=== PATIENT | female | born 1995 | race Two or more races ===

== ENCOUNTER 2022-08-24 12:16 | Emergency (ER) | payer BC, SELFPAY ==
[2022-08-24 12:49] VITALS: BP 116/76; PULSE 112; RESP 18; TEMP 38.4; O2SAT 97; BMI 31.0
--- NOTE | 2022-08-24 13:35 | ED_ITS ---
HPI - General Adult General Chief complaint: Sore Throat Stated complaint: Swollen tonsels, difficulty breathing Time Seen by Provider: 08/24/22 12:26 History of Present Illness HPI narrative: This 26-year-old female comes in reporting severe sore throat for the past couple days. She does not report any cough or nasal congestion. She does have some pain in her left ear also. There is no report of shortness of breath. She arrives with a temperature of 101.2? F. She states that she has had fevers at 104? and despite taking Tylenol and ibuprofen she has had persistent fevers. Related Data Previous Rx's Medication Instructions Recorded amoxicillin 875 mg-potassium 1 tab PO BID #20 tabs 08/24/22 clavulanate 125 mg tablet ketorolac 10 mg tablet 10 mg PO TID 5 days #15 tabs 08/24/22 Allergies Allergy/AdvReac Type Severity Reaction Status Date / Time No Known Drug Allergies Allergy Verified 08/24/22 12:55 Review of Systems 2 Status of ROS: Reports: 10 or more systems reviewed and unremarkable except as noted in History and below Narrative: Constitutional: No weight gain or loss. Eyes: No discharge. No vision changes. HENT: No congestion. Sore throat and some left ear pain. Cardiovascular: No chest pain, no palpitations. Respiratory: No shortness of breath, no wheezes, no cough. Gastrointestinal: No abdominal pain, no vomiting, no diarrhea. Genitourinary: No dysuria, no hematuria. Musculoskeletal: Normal range of motion. Skin: No rashes, no pruritis. Neurological: No dizziness, weakness, sensory change, speech change. Endo/Heme/Allergies: No bruising or bleeding. No polydipsia. Pysch: no suicidality, no anxiety, no insomnia. All other systems reviewed and are negative. Exam Narrative: Exam Narrative: Constitutional: Well-developed, well-nourished, no acute distress. HEENT: Normocephalic, atraumatic. Oropharynx shows bilateral tonsillar hypertrophy with exudate. There is no trismus. Tympanic membranes appear norm al bilaterally. Neck: Normal range of motion. Nontender. Supple. Heart: Regular. No murmurs. Normal rate. Intact distal pulses. Lungs: Clear to auscultation. No chest discomfort. No wheezes, rhonchi, or rales. Abdomen: Normal bowel sounds. Nontender. No rebound tenderness. Genitalia: Deferred. Back: No midline tenderness. Normal range of motion. Extremities: Normal range of motion. No injury. Skin: Intact. No rash. Warm. No erythema or pallor. Neurologic: No altered sensation. No weakness. Alert and oriented. Psychiatric: No suicidality. No anxiety or depression. No insomnia. Nursing notes and vitals signs are reviewed. Const: Vital Signs, click to edit/add: Vital Signs - 24 hr 08/24/22 12:49 Temperature 101.2 F H Pulse Rate [Right Pulse Oximeter] 112 H Respiratory Rate 18 Blood Pressure [Ri ght Upper Arm] 116/76 Pulse Oximetry 97 Oxygen Delivery Me thod Room Air Course Vital Signs Vital signs: Initial Vital Signs Temperature 101.2 F H 08/24/22 12:49 Temperature Source Temporal Artery Scan 08/24/22 12:49 Pulse Rate 112 H 08/24/22 12:49 Respiratory Rate 18 08/24/22 12:49 Blood Pressure 116/76 08/24/22 12:49 Blood Pressure Mean 89 08/24/22 12:49 Pulse Oximetry 97 08/24/22 12:49 Oxygen Delivery Method 08/24/22 12:49 Vital Signs Temperature 101.2 F H 08/24/22 12:49 Pulse Rate 112 H 08/24/22 12:49 Respiratory Rate 18 08/24/22 12:49 Blood Pressure 116/76 08/24/22 12:49 Pulse Oximetry 97 08/24/22 12:49 Oxygen Delivery Method 08/24/22 12:49 Temperature 101.2 F H 08/24/22 12:49 Pulse Rate 112 H 08/24/22 12:49 Respiratory Rate 18 08/24/22 12:49 Blood Pressure 116/76 08/24/22 12:49 Pulse Oximetry 97 08/24/22 12:49 Oxygen Delivery Method 08/24/22 12:49 Medical Decision Making MDM Narrative Medical decision making narrative: This patient comes in with symptoms typical of tonsillitis. The appearance of her throat and the persistent fever indicates need for antibiotic treatment. A strep test would not be helpful in this regard as even if it is negative she still should receive this treatment. I did discuss the possibility of mono but she is just 2 days into the symptoms and the testing will not be accurate. She received prescription for Augmentin and Toradol. I describe signs and symptoms that would indicate a need for return and re-evaluation. Discharge Plan Discharge Clinical Impression: Acute tonsillitis Patient Disposition: Home, Self-Care Condition: Stable Additional Instructions: Take medication as prescribed. Use [id number] medicines also as needed and directed. Follow up with MD or return if worsening. Prescriptions: New ketorolac 10 mg tablet 10 mg PO TID 5 Days Qty: 15 0RF amoxicillin-pot clavulanate 875-125 mg tablet 1 tab PO BID Qty: 20 0RF Follow Up/Referrals: Provider,Not a Local [Primary Care Provider] - Stand Alone Forms: [employer] Info Instructions
[2022-08-24 13:41] VITALS: BP 138/80; PULSE 117; TEMP 38.7; O2SAT 99
== END 2022-08-24 13:50 | disposition home or self-care (01) ==
PROVIDERS: Emergency Provider Emergency Medicine Emergency Medical Services
DX: J03.90 Acute tonsillitis, unspecified (principal)
CPT/HCPCS: 99283; 99285

== ENCOUNTER 2023-05-15 22:55 | Emergency (ER) | payer BC, SELFPAY ==
[2023-05-15 23:21] VITALS: BP 118/73; PULSE 87; RESP 18; TEMP 36.4; O2SAT 99; BMI 31.6
--- NOTE | 2023-05-16 00:23 | ED.BACK ---
HPI - Back Pain/Injury General Time Seen by Provider: 00:24 Date Seen: 05/24/23 Chief Complaint: Back Injury/Pain Stated Complaint: Slipped disc, inflammation in back Time Seen by Provider: 05/16/23 00:03 Source: patient, family, RN notes reviewed and old records reviewed Mode of arrival: ambulatory Limitations: no limitations History of Present Illness HPI Narrative: 27-year-old female who presents today with left-sided back pain. This started about 4 days ago, she was lifting something and felt a pop in her back, has had pain since. Pain is worse with movement and radiates to the low back and across to the right little bit but not into the buttock or leg. No bowel or bladder incontinence. Has been taking ibuprofen 800 mg every 4-6 hours for this. Saw the chiropractor today who told her she should get a ?steroid shot.Denies possibility of . Related Data Allergies Allergy/AdvReac Type Severity Reaction Status Date / Time No Known Drug Allergies Allergy Verified 05/15/23 23:25 Review of Systems Status of ROS: Reports: 10 or more systems reviewed and unremarkable except as noted in History and below PFSH PFSH Social History Smoking Status: Never smoker How often do you have a drink containing alcohol: never How often do you have six or more drinks on one occasion: Never AUDIT-C Alcohol total score: 0 Non-prescribed substance use: denies use Exam Narrative: Exam Narrative: General: well nourished , NAD Head: Atraumatic and normocephalic ENT: External ears and external nose are normal Eyes: Conjunctiva clear, pupils are equal reactive, external ocular motions are intact Neck: Full spontaneous range of motion of the neck Lungs: No respiratory distress Musculoskeletal: Tenderness just left of midline of the low lumbar spine. Straight leg negative, strength and sensation of the left leg intact. Limited flexion and extension. Neurologic: No gross focal neurologic deficits Skin: No rashes Psych: Mood and affect are appropriate Const: Vital Signs, click to edit/add: Vital Signs - 24 hr 05/15/23 23:21 Temperature 97.5 F L Pulse Rate [Pulse Oximeter] 87 Respiratory Rate 18 Blood Pressure [Ri ght Upper Arm] 118/73 Pulse Oximetry 99 Oxygen Delivery Me thod Room Air Course Course ED Course: Patient seen examined, prior records reviewed. Patient presents today with low back pain that occurred after lifting. Predominantly on the left side with lip some left-sided tenderness but no neurologic symptoms, strength and sensation of the lower extremities intact, no incontinence. Patient will be started on prednisone burst, oxycodone, and Flexeril as needed. We discussed decreasing use of ibuprofen as she has been over taking this. Discussed follow-up in the orthopedic clinic. Vital Signs Vital signs: Initial Vital Signs Temperature 97.5 F L 05/15/23 23:21 Temperature Source Temporal Artery Scan 05/15/23 23:21 Pulse Rate 87 05/15/23 23:21 Pulse Rhythm Regular 05/15/23 23:21 Respiratory Rate 18 05/15/23 23:21 Blood Pressure 118/73 05/15/23 23:21 Blood Pressure Mean 88 05/15/23 23:21 Pulse Oximetry 99 05/15/23 23:21 Oxygen Delivery Method Room Air 05/15/23 23:21 Vital Signs Temperature 97.5 F L 05/15/23 23:21 Pulse Rate 87 05/15/23 23:21 Respiratory Rate 18 05/15/23 23:21 Blood Pressure 118/73 05/15/23 23:21 Pulse Oximetry 99 05/15/23 23:21 Oxygen Delivery Method Room Air 05/15/23 23:21 Temperature 97.5 F L 05/15/23 23:21 Pulse Rate 87 05/15/23 23:21 Respiratory Rate 18 05/15/23 23:21 Blood Pressure 118/73 05/15/23 23:21 Pulse Oximetry 99 05/15/23 23:21 Oxygen Delivery Method Room Air 05/15/23 23:21 Discharge Plan Discharge Clinical Impression: Strain of lumbar region Patient Disposition: Home, Self-Care Condition: Stable Instructions: Low Back Strain (ED), Back Pain (ED), Lower Back Exercises (ED) Additional Instructions: Start prednisone taper as prescribed Do not take ibuprofen 800 mg tablets anymore than 3 times a day. You may take Tylenol between doses of ibuprofen. Oxycodone for severe pain and Flexeril, a muscle relaxant, as needed. Ice or heat for comfort Follow-up with the orthopedic clinic in 1 week, Follow Up/Referrals: Provider,Not a Local [Primary Care Provider] - Stand Alone Forms: Medical Referral [employer] Info Instructions
[2023-05-16 00:39] VITALS: BP 125/70; PULSE 79; RESP 18; TEMP 36.8; O2SAT 99
[2023-05-16 00:43] VITALS: BP 125/70; PULSE 79; RESP 18; TEMP 36.8
== END 2023-05-16 00:43 | disposition home or self-care (01) ==
LOC: ED 05-16 00:29
PROVIDERS: Emergency Provider Family Medicine
DX: S39.012A Strain of muscle, fascia and tendon of lower back, initial encounter (principal); X50.9XXA Other and unspecified overexertion or strenuous movements or postures, initial encounter
CPT/HCPCS: 99283; 99284

== ENCOUNTER 2023-08-18 14:37 | Outpatient (CLI) | payer BC, SELFPAY ==
--- NOTE | 2023-08-18 14:30 | CRLHL7_ITS ---
For Patients: As a result of the Century Cures Act, medical imaging exams and procedure reports are released immediately into your electronic medical record. You may view this report before your referring provider. If you have questions, please contact your health care provider. INDICATION: Low back pain. TECHNIQUE: Noncontrast sagittal and axial T1, T2, and sagittal STIR sequences are provided. No comparisons. FINDINGS: The overall stature, alignment and intrinsic marrow signal of the lumbar spine is within normal limits. Conus is normal. L4-5: Small posterior central disc protrusion extends 4 millimeters beyond the posterior vertebral body margin resulting in no significant central canal or foraminal narrowing. Remainder of the lumbar spine is unremarkable, specifically no evidence of suspicious central canal or foraminal narrowing. Incidental cysts within the right adnexa likely physiologic in nature. IMPRESSION: 1. Minor discogenic degenerative change at L4-5 resulting in no significant central canal or foraminal narrowing. 2. Otherwise, unremarkable MRI of the lumbar spine. Dictated by Norris Lorenzo MD @ 08/18/2023 4:24:32 PM (Electronically Signed)
== END 2023-08-18 14:38 | disposition home or self-care (01) ==
PROVIDERS: Visit Provider Family Medicine
DX: M54.50 Low back pain, unspecified (principal); M51.36 Other intervertebral disc degeneration, lumbar region
CPT/HCPCS: 72148

== ENCOUNTER 2023-11-13 16:03 | Outpatient (CLI) | payer BC, SELFPAY ==
--- NOTE | 2023-11-13 16:00 | US_ITS ---
Patient: RM MURILLO Facility:?[facility] Patient ID:?[id number] Site Patient ID:?[id number]. Site :?1995 Study:?US-OB Pelvis PELVIC TV/TA-11/13/2023 5:12:09 PM Ordering Physician:?JT SANDERS Final Report: INDICATION: Dysmenorrhea, pelvic pain. TECHNIQUE: Transabdominal and transvaginal pelvic ultrasound with grayscale and duplex Doppler images. FINDINGS: Uterus is retroflexed and measures 7.3 x 3.1 x 5.1 cm. Endometrial stripe thickness is 5 mm. Both ovaries contain numerous subcentimeter follicles. No dominant follicle. No adnexal mass. Normal color and spectral Doppler flow to both ovaries. Minimal pelvic free fluid. IMPRESSION: Numerous subcentimeter follicles in both ovaries. This finding can be seen with polycystic ovarian syndrome but is not diagnostic in itself. Otherwise normal. Dictated by Earle Krishnan MD @ 11/14/2023 11:47:03 AM Signed by:?Earle Krishnan MD @11/14/2023 11:47:03 AM (Electronic Signature)
== END 2023-11-13 16:04 | disposition home or self-care (01) ==
LOC: US 16:03
PROVIDERS: Visit Provider Family Medicine
DX: N94.6 Dysmenorrhea, unspecified (principal); N83.01 Follicular cyst of right ovary; N83.02 Follicular cyst of left ovary; R10.2 Pelvic and perineal pain
CPT/HCPCS: 76830; 76856; 93976

== ENCOUNTER 2023-12-05 16:13 | Outpatient (CLI) | payer BC, SELFPAY | END 2023-12-05 16:14 | disposition home or self-care (01) | PROVIDERS: PCP Family Medicine; Visit Provider Registered Nurse | DX: Z13.220 Encounter for screening for lipoid disorders (principal); Z13.1 Encounter for screening for diabetes mellitus; Z13.29 Encounter for screening for other suspected endocrine disorder; Z11.3 Encounter for screening for infections with a predominantly sexual mode of transmission; L68.0 Hirsutism | CPT/HCPCS: 80061; 82947; 83498; 84270; 84402; 84403; 84443; 86592; 86703; 86803; 87340; 87491; 87591 ==

== ENCOUNTER 2024-03-31 18:10 | Emergency (ER) | payer OTHER, SELFPAY ==
[2024-03-31 18:29] VITALS: BP 106/69; PULSE 78; RESP 18; TEMP 36.3; O2SAT 98
--- NOTE | 2024-03-31 18:57 | ED_ITS ---
HPI - General Time Seen by Provider: 18:58 Date Seen: 03/31/24 Chief complaint: Vaginal Bleeding Stated complaint: bleeding, 8 wks preg Time Seen by Provider: 03/31/24 18:56 Source: patient and RN notes reviewed Mode of arrival: ambulatory Limitations: no limitations History of Present Illness HPI Narrative: This 28-year-old female is coming in with spotting and cramping. She states her last menstrual period was probably on 02/09/2024. She had some vermin exterminator spotting earlier. About 20 minutes prior to arrival, had more cramping and more heavier bleeding, more bright red blood. She has had morning sickness, actually threw up this morning for the 1st time. She has had no vaginal intercourse. She has not had any fevers or chills, no abnormal vaginal discharge prior to the blood. She is still having breast tenderness. She believes that she has had maybe 2 or 3 other miscarriages. She has no living children. MD Complaint: vaginal bleeding Hx Last Menstrual Period: 02/09/24 Patient : Yes Related Data Home Medications ?Medication ?Instructions ?Recorded ?Confirmed escitalopram oxalate 10 mg tablet 10 mg PO QDAY 01/26/24 03/15/24 Previous Rx's ?Medication ?Instructions ?Recorded escitalopram oxalate 10 mg tablet 10 mg PO QDAY #30 tabs 01/26/24 (Lexapro) levonorgestrel-ethinyl estradiol 1 tab PO QDAY #84 tabs 01/26/24 0.1 mg-20 mcg tablet (Aviane) metronidazole 500 mg tablet 500 mg PO BID #14 tabs 02/16/24 Allergies Allergy/AdvReac Type Severity Reaction Status Date / Time No Known Drug Allergies Allergy Unverified 03/15/24 08:02 Review of Systems Status of ROS: Reports: 6 or more systems reviewed and unremarkable except as noted in History and below [facility] Medical History Chest pain ?R07.9 - Chest pain, unspecified (ICD-10) Acute pelvic inflammatory disease ?N73.0 - Acute parametritis and pelvic cellulitis (ICD-10) Miscarriage ?O03.9 - Complete or unspecified spontaneous without complication (ICD-10) No significant past medical history Surgical History H/O plastic surgery ?Z98.890 - Other specified postprocedural states (ICD-10) Social History What is your current living situation?: I presently have a place to live Problems where you live: no known problems In the past 12 months, utilities in danger of being shut off: no In past 12 months, lack of transportation kept you from medical appts, meetings, work, or getting things needed for daily living: no In the past 12 mos, have been you worried that your food would run out before you had money to buy more?: never true In the past 12 mos, the food you bought just didn't last and you didn't have money to buy more?: never true Smoking Status: Never smoker Do you use any of these nicotine containing products: None Second hand tobacco smoke exposure: No How often do you have a drink containing alcohol: never How often do you have six or more drinks on one occasion: Never AUDIT-C Alcohol total score: 0 Non-prescribed substance use: denies use How often does anyone, including family, friends and others, physically hurt you : never How often does anyone, including family, friends and others, insult or talk down to you: never How often does anyone, including family, friends and others, threaten you with harm: never How often does anyone, including family, friends and others, scream or curse at you: never Little interest or pleasure in doing things: not at all Feeling down, depressed, or hopeless: not at all service: No Exam Const: Vital Signs, click to edit/add: Vital Signs - 24 hr 03/31/24 18:29 Temperature 97.3 F L Pulse Rate [Pulse Oximeter] 78 Respiratory Rate 18 Blood Pressure [Ri ght Upper Arm] 106/69 Pulse Oximetry 98 Oxygen Delivery Me thod Room Air Patient is a very pleasant 28-year-old female, alert, interactive, no apparent distress. Ambulatory into the ED of her own accord. Sclera clear, face atraumatic. Neck supple. Lungs are clear, good air entry, no wheezing crackles. CV regular rate and rhythm, no murmur, normal S1-S2, no S3-S4. Abdomen is soft, nontender, nondistended, no rebound or guarding. Pelvic exam deferred at this point. Documenting provider has reviewed patient's vital signs: yes Course Course ED Course: Patient is not having significant pain, doubt ectopic but imaging will be done. This certainly could be threatened miscarriage, miscarriage or subchorionic hemorrhage. We will obtain imaging and appropriate labs. Will get CBC, quantitative hCG and her blood type. Reevaluation(s) Time of Reevaluation #1: 21:04 Reevaluation #1: Reviewed with patient her ultrasound which shows an intrauterine , small subchorionic hemorrhage. Her hCG levels are most certainly reassuring. She is O-positive. We will discharge to home for further outpatient follow-up. Vital Signs Vital signs: Initial Vital Signs Temperature 97.3 F L 03/31/24 18:29 Temperature Source Temporal Artery Scan 03/31/24 18:29 Pulse Rate 78 03/31/24 18:29 Respiratory Rate 18 03/31/24 18:29 Blood Pressure 106/69 03/31/24 18:29 Blood Pressure Mean 81 03/31/24 18:29 Pulse Oximetry 98 03/31/24 18:29 Oxygen Delivery Method Room Air 03/31/24 18:29 Vital Signs Temperature 97.3 F L 03/31/24 18:29 Pulse Rate 78 03/31/24 18:29 Respiratory Rate 18 03/31/24 18:29 Blood Pressure 106/69 03/31/24 18:29 Pulse Oximetry 98 03/31/24 18:29 Oxygen Delivery Method Room Air 03/31/24 18:29 Temperature 97.3 F L 03/31/24 18:29 Pulse Rate 78 03/31/24 18:29 Respiratory Rate 18 03/31/24 18:29 Blood Pressure 106/69 03/31/24 18:29 Pulse Oximetry 98 03/31/24 18:29 Oxygen Delivery Method Room Air 03/31/24 18:29 MDM - OB/Uterine Contractions Lab Data Attestation: I reviewed the patient's lab results. Labs: Lab Results 03/31/24 Range/Units 19:21 WBC 11.95 H (4.50-11.00) K/uL RBC 3.97 L (4.00-5.20) m/uL Hgb 11.7 L (12.0-16.0) gm/dL Hct 35.8 (33.0-51.0) % MCV 90 (80-100) fL MCH 30 (26-34) pg MCHC 33 (32-36) gm/dL RDW Coeff of Tamia 13.3 (11.5-15.5) % Plt Count 283 (140-440) K/uL Neut % (Auto) 69.0 (42.0-72.0) % Lymph % (Auto) 23.5 (20-44) % [place] % (Auto) 5.3 (0.0-11.0) % Eos % (Auto) 1.7 (0.0-7.0) % Baso % (Auto) 0.3 (0.0-3.0) % Neut # (Auto) 8.20 H (1.7-7.0) K/uL Lymph # (Auto) 2.80 (0.90-2.90) K/uL [place] # (Auto) 0.60 (0.00-0.90) K/UL Eos # (Auto) 0.20 (0.00-0.50) K/uL Baso # (Auto) 0.00 (0.00-0.30) K/uL Abs Immat Gran (auto) 0.00 (0.00-0.30) K/uL Imm/Tot Granulo (auto) 0.2 % HCG, Quant 87335.00 mIU/mL Blood Type O Positive Imaging Data US OB: Attestation: I have reviewed the pertinent imaging results. Radiologist's impression: Patient: RM MURILLO Facility:?[facility] Patient ID:?[id number] Site Patient ID:?[id number]. Site :?1995 Study:?US-OB Pelvis -03/31/2024 8:03:12 PM Ordering Physician:?Michelle Baker Final Report: INDICATION: Abnormal vaginal bleeding in early . TECHNIQUE: Transabdominal and transvaginal limited obstetric ultrasound examination of the pelvis was performed. Grayscale and color Doppler images were obtained. COMPARISON: None. FINDINGS: Uterus: Normal in echotexture. No suspicious masses. Endometrium: Delete no significant endometrial free fluid. Intrauterine gestation: Yes. Mean sac diameter of 1.6 cm, compatible with an estimated gestational age of 6 weeks and 3 days. cardiac activity: Yes. One hundred seven bpm. [place]-rump length: 2 mm. Estimated gestational age of 5 weeks and 5 days. Yolk sac: Normal. Perigestational hemorrhage: There is a small amount of subchorionic hypoechogenicity. Estimated sonographic due date: 11/26/2024. Right Ovary: Measures 2.9 x 1.7 x 1.6 cm. No suspicious masses. Normal arterial and venous flow on color Doppler imaging. Left ovary: Measures 3.5 x 2.7 x 2.7 cm. Left corpus luteal cyst. Normal arterial and venous flow on color Doppler imaging. Cul-de-sac: No free fluid. IMPRESSION: 1. Small viable intrauterine with estimated gestational age of 5 weeks and 5 days by crown-rump length and estimated due date of 11/26/2024. 2. Trace subchorionic hematoma. Dictated by Stuart Green MD @ 03/31/2024 8:51:51 PM (Electronic Signature) Discharge Plan Discharge Clinical Impression: First trimester bleeding, Subchorionic hemorrhage in first trimester Patient Disposition: Home, Self-Care Condition: Stable Instructions: Subchorionic Hemorrhage (ED) Additional Instructions: Please contact your clinic where you plan to do your OB care and get a follow-up appointment. Recommend pelvic rest, no intercourse until further advised by your detector car operator or Dr. Following your . This should resolve and is not likely to harm the . If you do note increased bleeding, are bleeding through a maxi pad an hour for over 2 hours, feel symptomatic from bleeding, do need to be re-evaluated. The ultrasound is reassuring for an intrauterine , the hCG hormone level is high and indicative of a healthy at this point. Activity Level: No strenuous activity Prescriptions: No Action escitalopram oxalate 10 mg tablet 10 mg PO QDAY escitalopram oxalate [Lexapro] 10 mg tablet 10 mg PO QDAY Qty: 30 0RF levonorgestrel-ethinyl estrad [Aviane] 0.1-20 mg-mcg tablet 1 tab PO QDAY Qty: 84 4RF metronidazole 500 mg tablet 500 mg PO BID Qty: 14 0RF Follow Up/Referrals: Celso Ibanez MD [Primary Care Provider] - Stand Alone Forms: [employer] Info Instructions
--- NOTE | 2024-03-31 19:03 | CRLHL7_ITS ---
For Patients: As a result of the Century Cures Act, medical imaging exams and procedure reports are released immediately into your electronic medical record. You may view this report before your referring provider. If you have questions, please contact your health care provider. INDICATION: Abnormal vaginal bleeding in early . TECHNIQUE: Transabdominal and transvaginal limited obstetric ultrasound examination of the pelvis was performed. Grayscale and color Doppler images were obtained. COMPARISON: None. FINDINGS: Uterus: Normal in echotexture. No suspicious masses. Endometrium: Delete no significant endometrial free fluid. Intrauterine gestation: Yes. Mean sac diameter of 1.6 cm, compatible with an estimated gestational age of 6 weeks and 3 days. cardiac activity: Yes. One hundred seven bpm. [place]-rump length: 2 mm. Estimated gestational age of 5 weeks and 5 days. Yolk sac: Normal. Perigestational hemorrhage: There is a small amount of subchorionic hypoechogenicity. Estimated sonographic due date: 11/26/2024. Right Ovary: Measures 2.9 x 1.7 x 1.6 cm. No suspicious masses. Normal arterial and venous flow on color Doppler imaging. Left ovary: Measures 3.5 x 2.7 x 2.7 cm. Left corpus luteal cyst. Normal arterial and venous flow on color Doppler imaging. Cul-de-sac: No free fluid. IMPRESSION: 1. Small viable intrauterine with estimated gestational age of 5 weeks and 5 days by crown-rump length and estimated due date of 11/26/2024. 2. Trace subchorionic hematoma. Dictated by Stuart Green MD @ 03/31/2024 8:51:51 PM (Electronically Signed)
[2024-03-31 19:29] LABS: Basophils Percent Auto 0.3 % (0.0-3.0); Eosinophils Percent Auto 1.7 % (0.0-7.0); Hematocrit 35.8 % (33.0-51.0); Hemoglobin* 11.7 gm/dL (12.0-16.0); Immature Granulocytes Pct Auto 0.2 %; Lymphocytes Percent Auto 23.5 % (20-44); Mean Corpuscular HGB Conc 33 gm/dL (32-36); Mean Corpuscular Hemoglobin 30 pg (26-34); Mean Corpuscular Volume 90 fL (80-100); Monocytes Percent Auto 5.3 % (0.0-11.0); Platelet Count* 283 K/uL (140-440); RDW Coefficient of Variation % 13.3 % (11.5-15.5); Red Blood Count 3.97 m/uL (4.00-5.20); White Blood Count* 11.95 K/uL (4.50-11.00)
[2024-03-31 19:44] LABS: Slide Review Reflex No
== END 2024-03-31 21:12 | disposition home or self-care (01) ==
PROVIDERS: Emergency Provider Family Medicine; PCP Family Medicine
DX: O46.8X1 Other antepartum hemorrhage, first trimester (principal); Z3A.08 8 weeks gestation of pregnancy
CPT/HCPCS: 36415; 76817; 84702; 85025; 86900; 86901; 99283; 99284

== ENCOUNTER 2024-04-19 12:31 | Day surgery (SDC) | payer OTHER, SELFPAY ==
[2024-04-19 12:35] VITALS: BP 108/73; PULSE 106; RESP 16; TEMP 37.7; O2SAT 98; BMI 28.3
--- NOTE | 2024-04-19 12:56 | ED_ITS ---
HPI - General Adult General Date Seen: 04/19/24 Chief complaint: Abdominal Pain Stated complaint: Abdominal pain Time Seen by Provider: 04/19/24 12:41 History of Present Illness HPI narrative: 28-year-old female with a history previous miscarriages, anxiety, presents to the ER today with vaginal bleeding, passing clots, fevers, as well as pelvic cramping. On 03/31 she presented to the ER today with vaginal spotting and cramping. According to those notes LMP was 02/09/2024. On that day white count was 11.9, hemoglobin 11.7, platelet count 283. Quant was [id number]. Blood type O positive. Pelvic ultrasound showed a viable IUP 5 weeks 5 days and a trace subchorionic hematoma. Patient does not have any obstetric care here at [facility]. I checked in the [facility] medical record to see if she is getting OB care there. I can see in the [facility] medical record that she was seen at [facility] 2 days ago 04/17/24. According to that ER note she had had abdominal pain beginning March 31 and has 2 previous miscarriages. No mention of the medically induced according to that note. WBC 10.1, hemoglobin 11.5, platelet count 313. Sodium 139, potassium 3.8, chloride 103, bicarb 22, BUN 12, creatinine 0.7. hCG was 1700. Ultrasound performed. Recommended outpatient follow-up with OB. She was seen at [facility] in [place] on April 05 and treated with of medical induced (probably him misoprostol and mefipristone). She says she had a follow-up visit at [facility] last Monday, 1 week ago. She was having ongoing pelvic cramping and bleeding. She apparently had a follow-up blood counts that were normal. Follow-up ultrasound showed probably retained products of conception (I do not have a copy of the ultrasound from [facility], but patient says there was still ?debris? in her uterus) the. [facility] recommended that they proceed with a D&C last week, the but the patient declined. She was told to expect heavy cramping and bleeding this week and return to the ER if she has uncontrolled heavy bleeding, fever, or any other problems. ED for the past several days she has had much increased pelvic pain, vaginal bleeding with clots. She says she is changing a tampon about every 1/2 hour. She is feeling a little bit weak and lightheaded. She has had chills for the past 4 nights but no objective fevers. Blood is mostly red and dark red. No brown her purulent bleeding. No urinary symptoms. No cough. Related Data Home Medications ?Medication ?Instructions ?Recorded ?Confirmed escitalopram oxalate 10 mg tablet 10 mg PO QDAY 01/26/24 04/19/24 Previous Rx's ?Medication ?Instructions ?Recorded escitalopram oxalate 10 mg tablet 10 mg PO QDAY #30 tabs 01/26/24 (Lexapro) Allergies Allergy/AdvReac Type Severity Reaction Status Date / Time No Known Drug Allergies Allergy Verified 04/19/24 12:43 PFSH PFS Medical History Chest pain ?R07.9 - Chest pain, unspecified (ICD-10) Acute pelvic inflammatory disease ?N73.0 - Acute parametritis and pelvic cellulitis (ICD-10) Miscarriage ?O03.9 - Complete or unspecified spontaneous without complication (ICD-10) No significant past medical history Surgical History H/O plastic surgery ?Z98.890 - Other specified postprocedural states (ICD-10) Social History What is your current living situation?: I presently have a place to live Problems where you live: no known problems In the past 12 months, utilities in danger of being shut off: no In past 12 months, lack of transportation kept you from medical appts, meetings, work, or getting things needed for daily living: no In the past 12 mos, have been you worried that your food would run out before you had money to buy more?: never true In the past 12 mos, the food you bought just didn't last and you didn't have money to buy more?: never true Smoking Status: Never smoker Do you use any of these nicotine containing products: None Second hand tobacco smoke exposure: No How often do you have a drink containing alcohol: never How often do you have six or more drinks on one occasion: Never AUDIT-C Alcohol total score: 0 Non-prescribed substance use: denies use How often does anyone, including family, friends and others, physically hurt you : never How often does anyone, including family, friends and others, insult or talk down to you: never How often does anyone, including family, friends and others, threaten you with harm: never How often does anyone, including family, friends and others, scream or curse at you: never Little interest or pleasure in doing things: not at all Feeling down, depressed, or hopeless: not at all service: No Exam Narrative: Exam Narrative: Constitutional: Appears well-developed and well-nourished. Alert. Conversant. Tearful. Non toxic. HENT: Head: Atraumatic. Nose: Nose normal. Mouth/Throat: Oral mucosa is clear and moist. no trismus. Pharynx normal. Eyes: Conjunctivae normal. EOM normal. Pupils equal, round, and reactive to light. No scleral icterus. Neck: Normal range of motion. Neck supple. No tracheal deviation present. Cardiovascular: Normal rate, regular rhythm. No gallop. No friction rub. No murmur heard. Symmetric radial artery pulses . Normal cap refill in her distal extremities. Pulmonary/Chest: Effort normal. No stridor. No respiratory distress. No wheezes. No rales. No rhonchi . No tenderness. Abdominal: Soft. Bowel sounds normal. No distension. No mass. Suprapubic> left lower quad> right lower quadrant tenderness. Bilateral CVA tenderness. No rebound. No guarding. Musculoskeletal: RUE: Normal range of motion. No tenderness. No deformity LUE: Normal range of motion. No tenderness. No deformity RLE: Normal range of motion. No edema. No tenderness. No deformity LLE: Normal range of motion. No edema. No tenderness. No deformity Neurological: Alert and oriented to person, place, and time. Normal strength. CN II-VII intact. No sensory deficit. GCS eye subscore is 4. GCS verbal subscore is 5. GCS motor subscore is 6. Normal coordination Skin: Skin is warm and dry. No rash noted. No pallor. Normal capillary refill. Psychiatric: Normal mood. Normal affect. Const: Vital Signs, click to edit/add: Vital Signs - 24 hr 04/19/24 12:35 04/19/24 15:44 Temperature 99.8 F H 99.1 F Pulse Rate [Pulse Oximeter] 106 H 101 H Respiratory Rate 16 18 Blood Pressure [Ri ght Upper Arm] 108/73 115/77 Pulse Oximetry 98 98 Oxygen Delivery Me thod Room Air Room Air Course Vital Signs Vital signs: Initial Vital Signs Temperature 99.8 F H 04/19/24 12:35 Temperature Source Temporal Artery Scan 04/19/24 12:35 Pulse Rate 106 H 04/19/24 12:35 Respiratory Rate 16 04/19/24 12:35 Blood Pressure 108/73 04/19/24 12:35 Blood Pressure Mean 84 04/19/24 12:35 Blood Pressure Position Sitting 04/19/24 12:35 Pulse Oximetry 98 04/19/24 12:35 Oxygen Delivery Method Room Air 04/19/24 12:35 Vital Signs Temperature 99.8 F H 04/19/24 12:35 Pulse Rate 106 H 04/19/24 12:35 Respiratory Rate 16 04/19/24 12:35 Blood Pressure 108/73 04/19/24 12:35 Pulse Oximetry 98 04/19/24 12:35 Oxygen Delivery Method Room Air 04/19/24 12:35 Temperature 99.1 F 04/19/24 15:44 Pulse Rate 101 H 04/19/24 15:44 Respiratory Rate 18 04/19/24 15:44 Blood Pressure 115/77 04/19/24 15:44 Pulse Oximetry 98 04/19/24 15:44 Oxygen Delivery Method Room Air 04/19/24 15:44 Medications Administered Medications: Discontinued Medications Generic Name Dose Route Start Last Admin Trade Name Nabil PRN Reason Stop Dose Admin Ketorolac Tromethamine 15 mg 04/19/24 13:21 04/19/24 14:06 Ketorolac 15 Mg/Ml Inj IVP 04/19/24 13:22 15 mg ONCE ONE Administration Medical Decision Making MDM Narrative Medical decision making narrative: This is a 28-year-old female who is who was recently 8 weeks who had a medically induced ([facility] [place] who presents to the ER today with ongoing vaginal bleeding, typically red with clots, ongoing pelvic pain. This is been going on now for the past 2 weeks ever since she had her medications but is getting worse for the past few days. Also some subjective chills for the past couple of nights with a mild tachycardia and a low-grade fever. Concern here is for possible retained products of conception and or possible evolving endometritis. Although she describes heavy vaginal bleeding change can tampon every 30 minutes, hemoglobin is stable the compared to her measurement from March 31. At this point no indication for immediate transfusion. She has low-grade fever raising concern for possible infection. Fortunately white count is normal. She has a mild tachycardia but normal blood pressure. No other sepsis physiology Preliminary report of her pelvic ultrasound indicates that she probably does have retained products of conception. Rh is positive. Discussed with Obstetrics, Dr. Marrero. She will come here to the ER to evaluate and anticipate taking the patient to the OR for D and C this evening at 6pm in approx 90 minutes. Patient does have a low-grade fever but no purulent bleeding. In discussion with Ob will hold off on antibiotics until the D&C.. Lab Data Labs: Lab Results 04/19/24 04/19/24 04/19/24 Range/Units 13:20 13:21 13:22 WBC 5.54 (4.50-11.00) K/uL RBC 4.20 (4.00-5.20) m/uL Hgb 12.4 (12.0-16.0) gm/dL Hct 37.8 (33.0-51.0) % MCV 90 (80-100) fL MCH 30 (26-34) pg MCHC 33 (32-36) gm/dL RDW Coeff of Tamia 13.0 (11.5-15.5) % Plt Count 278 (140-440) K/uL Neut % (Auto) 72.2 H (42.0-72.0) % Lymph % (Auto) 19.7 L (20-44) % Gem % (Auto) 5.8 (0.0-11.0) % Eos % (Auto) 1.6 (0.0-7.0) % Baso % (Auto) 0.5 (0.0-3.0) % Neut # (Auto) 4.00 (1.7-7.0) K/uL Lymph # (Auto) 1.10 (0.90-2.90) K/uL Gem # (Auto) 0.30 (0.00-0.90) K/UL Eos # (Auto) 0.09 (0.00-0.50) K/uL Baso # (Auto) 0.03 (0.00-0.30) K/uL Abs Immat Gran (auto) 0.01 (0.00-0.30) K/uL Imm/Tot Granulo (auto) 0.2 % Sodium 137 (135-149) mmol/L Potassium 3.6 (3.6-5.1) mmol/L Chloride 103 (96-114) mmol/L Carbon Dioxide 24 (20-32) mmol/L Anion Gap 10 (7-15) mEq/L BUN 12 (5-24) mg/dL Creatinine 0.6 (0.5-1.5) mg/dL Estimated Creat Clear 117.54 Estimated GFR 127 ml/min Glucose 96 (60-115) mg/dL Lactate 1.2 (0.5-1.9) mmol/L Calcium 9.5 (8.4-10.6) mg/dL HCG, Quant 1447.80 mIU/mL Urine Color (Yellow) Urine Appearance (Clear) Urine pH (5.0-8.5) Ur Specific [place] (1.000-1.030) Urine Protein (Negative) Urine Glucose (UA) (Negative) Urine Ketones (Negative) Urine Blood (Negative) Urine Nitrite (Negative) Urine Bilirubin (Negative) Urine Urobilinogen (0.2-1.0) Ur Leukocyte Esterase (Negative) Urine RBC (0-2) Urine WBC (0-5) Ur Squamous Epith Cells (None-Few) Urine Bacteria (None) Blood Type O Positive Antibody Screen NEGATIVE 04/19/24 Range/Units Unknown WBC (4.50-11.00) K/uL RBC (4.00-5.20) m/uL Hgb (12.0-16.0) gm/dL Hct (33.0-51.0) % MCV (80-100) fL MCH (26-34) pg MCHC (32-36) gm/dL RDW Coeff of Tamia (11.5-15.5) % Plt Count (140-440) K/uL Neut % (Auto) (42.0-72.0) % Lymph % (Auto) (20-44) % Gem % (Auto) (0.0-11.0) % Eos % (Auto) (0.0-7.0) % Baso % (Auto) (0.0-3.0) % Neut # (Auto) (1.7-7.0) K/uL Lymph # (Auto) (0.90-2.90) K/uL Gem # (Auto) (0.00-0.90) K/UL Eos # (Auto) (0.00-0.50) K/uL Baso # (Auto) (0.00-0.30) K/uL Abs Immat Gran (auto) (0.00-0.30) K/uL Imm/Tot Granulo (auto) % Sodium (135-149) mmol/L Potassium (3.6-5.1) mmol/L Chloride (96-114) mmol/L Carbon Dioxide (20-32) mmol/L Anion Gap (7-15) mEq/L BUN (5-24) mg/dL Creatinine (0.5-1.5) mg/dL Estimated Creat Clear Estimated GFR ml/min Glucose (60-115) mg/dL Lactate (0.5-1.9) mmol/L Calcium (8.4-10.6) mg/dL HCG, Quant mIU/mL Urine Color Red A (Yellow) Urine Appearance Cloudy A (Clear) Urine pH 5.5 (5.0-8.5) Ur Specific [place] 1.020 (1.000-1.030) Urine Protein 1+ A (Negative) Urine Glucose (UA) Negative (Negative) Urine Ketones Trace A (Negative) Urine Blood 3+ A (Negative) Urine Nitrite Negative (Negative) Urine Bilirubin 1+ A (Negative) Urine Urobilinogen 1.0 (0.2-1.0) Ur Leukocyte Esterase Trace A (Negative) Urine RBC >100 A (0-2) Urine WBC 0-2 (0-5) Ur Squamous Epith Cells Moderate A (None-Few) Urine Bacteria None (None) Blood Type Antibody Screen Discharge Plan Discharge Prescriptions: No Action escitalopram oxalate 10 mg tablet 10 mg PO QDAY escitalopram oxalate [Lexapro] 10 mg tablet 10 mg PO QDAY Qty: 30 0RF Follow Up/Referrals: Celso Ibanez MD [Primary Care Provider] -
--- NOTE | 2024-04-19 13:21 | CRLHL7_ITS ---
For Patients: As a result of the Century Cures Act, medical imaging exams and procedure reports are released immediately into your electronic medical record. You may view this report before your referring provider. If you have questions, please contact your health care provider. INDICATION: Recent miscarriage, medically induced . Vaginal bleeding and pain, possible retained products of conception. TECHNIQUE: Ultrasound pelvis transvaginal only. Real-time sonographic images with spectral and color Doppler imaging of the ovaries were obtained. COMPARISON: Obstetric ultrasound dated 03/31/2024. FINDINGS: Uterus: 6.8 x 3.8 x 5.2 cm. Endometrium: Thickened heterogeneous endometrium, containing ill-defined echogenicities and areas of internal vascularity. The endometrial thickness measures 1.7 cm. Mass: No uterine fibroids identified. Free fluid: No significant pelvic free fluid. Right ovary: 2.5 x 1.5 x 2.0 cm. No ovarian or adnexal masses. Normal arterial and venous blood flow. Left ovary: 2.7 x 2.2 x 2.1 cm. Small left corpus luteum cyst noted measuring up to 2.1 cm. Normal arterial and venous blood flow. IMPRESSION: Thickened heterogeneous endometrium, containing ill-defined echogenicities and areas of internal vascularity, concerning for retained products of conception. Dictated by Sinai Paris MD @ 04/19/2024 4:15:31 PM (Electronically Signed)
[2024-04-19 13:28] LABS: Lactate* 1.2 mmol/L (0.5-1.9)
[2024-04-19 13:31] LABS: Basophils Absolute Auto 0.03 K/uL (0.00-0.30); Basophils Percent Auto 0.5 % (0.0-3.0); Eosinophils Absolute Auto 0.09 K/uL (0.00-0.50); Eosinophils Percent Auto 1.6 % (0.0-7.0); Hematocrit 37.8 % (33.0-51.0); Hemoglobin* 12.4 gm/dL (12.0-16.0); Immature Granulocytes Abs Auto 0.01 K/uL (0.00-0.30); Immature Granulocytes Pct Auto 0.2 %; Lymphocytes Percent Auto 19.7 % (20-44); Mean Corpuscular HGB Conc 33 gm/dL (32-36); Mean Corpuscular Hemoglobin 30 pg (26-34); Mean Corpuscular Volume 90 fL (80-100); Monocytes Percent Auto 5.8 % (0.0-11.0); Neutrophils Percent Auto 72.2 % (42.0-72.0); Platelet Count* 278 K/uL (140-440); White Blood Count* 5.54 K/uL (4.50-11.00)
[2024-04-19 13:44] LABS: Chloride* 103 mmol/L (96-114); Potassium* 3.6 mmol/L (3.6-5.1); Sodium* 137 mmol/L (135-149)
[2024-04-19 13:47] LABS: Anion Gap 10 mEq/L (7-15); Blood Urea Nitrogen* 12 mg/dL (5-24); Carbon Dioxide* 24 mmol/L (20-32); Creatinine* 0.6 mg/dL (0.5-1.5); Est. Creatinine Clearance* 117.54; Estimated Glomerular Filt Rate 127 ml/min
[2024-04-19 13:48] LABS: Calcium* 9.5 mg/dL (8.4-10.6); Glucose* 96 mg/dL (60-115)
[2024-04-19] MEDS: KETOROLAC 15 MG/ML inj IVP (14:06)
[2024-04-19 14:12] LABS: Slide Review Reflex No
[2024-04-19 15:44] VITALS: BP 115/77; PULSE 101; RESP 18; TEMP 37.3; O2SAT 98
[2024-04-19 16:20] LABS: Appearance Urine Cloudy (Clear); Bilirubin Urine 1+ (Negative); Blood Urine 3+ (Negative); Color Urine Red (Yellow); Glucose Urine Negative (Negative); Ketones Urine Trace (Negative); Leukocyte Esterase Urine Trace (Negative); Nitrite Urine Negative (Negative); Protein Urine 1+ (Negative); pH Urine 5.5 (5.0-8.5)
[2024-04-19 16:24] LABS: RBC Urine >100 (0-2); Squamous Epithelial Cell Urine Moderate (None-Few); WBC Urine 0-2 (0-5)
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
[2024-04-19] MEDS: DOXYCYCLINE HYCLATE 100 MG 200 MG PO (17:41)
[2024-04-19] MEDS: HYDROmorphone 0.5 mg/0.5 ml inj IVP (17:45)
--- NOTE | 2024-04-19 18:04 | ED.NURSE ---
to OR via cart
[2024-04-19] MEDS: BUPIVACAINE 0.5% 30 ML INJECTION (18:35)
[2024-04-19 18:45] VITALS: BP 113/79; PULSE 95; RESP 16; TEMP 36.4; O2SAT 99
--- NOTE | 2024-04-19 18:56 | W.ANESCHARGE ---
Anesthesia Charges Start Date/Time Anesthesia Start Date: 04/19/24 Anesthesia Start Time: 18:03 Stop Date/Time Anesthesia Stop Date: 04/19/24 Anesthesia Stop Time: 18:50 Summary Emergency: [employer]LECT[employer]PA[employer]ER
[2024-04-19 19:00] VITALS: BP 119/75; PULSE 100; RESP 16; O2SAT 100
--- NOTE | 2024-04-19 19:00 | W.PM.GYNPROC ---
Procedure Note Date of procedure: 04/19/24 Will [facility] bill your pro fee for this procedure?: Yes Pre-op diagnosis: Suspected retained products of conception History of medication Ab Procedure: Suction dilation and curettage Anesthesia: MAC and local Complications: None Surgeon: Mera Marrero MD Estimated blood loss (mL): 25 IV fluids (mL): 500 Urine Output (mL): 15 Pathology: specimen obtained, sent to pathology Condition: stable Disposition: same day Findings: Pelvic exam within normal limits Moderate bleeding in vaginal vault Uterus sounds to 7cm Procedure Description: After verifying written informed consent, the patient was taken to the operating room. She received 200mg of doxycyline PO in surgical prophylaxis. A time-out was completed to verify correct patient and procedure. Anesthesia was induced and found to be adequate. She was placed in the dorsal lithotomy position in yellow-fin stirrups with care taken to avoid neurologic injury. GC/chlamydia and trich swab was performed prior and sent. In/out catheterization was performed with return of 15cc of pale yellow urine. Speculum was inserted. The cervix was identified and grasped with an Allis clamp. A paracervical block was applied with 0.5% bupivicaine. The cervix was serially dilated to accommodate a No. 7 curved curette. Uterus sounds to 7cm. The curette was then introduced and gently advanced to the uterine fundus. The intrauterine contents were aspirated until there was no further return of tissue across 3 passes. Following this, the flexible curettage was reintroduced off suction where satisfactory uterine cri in all four quadrants. One additional pass was made with the suction curet with no tissue return. Allis was removed from the cervix. Cervix was noted to be hemostatic. No active bleeding was noted. Sponge and instrument count was correct. The patient was transferred to the recovery room in excellent condition. Surgical debrief was completed. EBL 25cc, IVF 500cc, UOP 15cc. Endometrial curettings with suspicion for retained products of conception were submitted to pathology.
[2024-04-19 19:01] LABS: Hepatitis B Surface Antigen* Negative (Negative)
[2024-04-19 19:11] LABS: HIV 1/2/P24 Combo Screen* Negative (Negative)
[2024-04-19 19:15] VITALS: BP 127/79; PULSE 85; RESP 16; TEMP 36.4; O2SAT 98
[2024-04-19 19:19] LABS: Hepatitis C Virus Antibody* Negative (Negative)
[2024-04-19 19:30] VITALS: BP 115/74; PULSE 79; RESP 16; TEMP 36.4; O2SAT 98
[2024-04-19 19:57] LABS: Bacterial Vaginosis* POSITIVE (Negative); Candida glab/krus NOT DETECTED (No Detected); Candida species NOT DETECTED (No Detected); Trichomonas vaginalis NOT DETECTED (No Detected)
[2024-04-19 20:29] LABS: Chlamydia DNA Amplified* NOT DETECTED (No Detected); GC DNA Amplified* NOT DETECTED (No Detected)
--- NOTE | 2024-04-19 22:01 | PC.NURSE ---
Pt arrived to unit at approx. 1640 for recovery from a D & C. PT recovered well. VSS and A & O once awake. Minimal vaginal bleeding noted on pad from procedure. Iv removed and intact. RN provided discharge education to patient and significant other. Discharge packet signed by patient and RN. Patient discharged to home at 2014 via ambulation and accompanied by significant other.
[2024-04-22 04:54] LABS: Rapid Plasma Reagin (RPR) Non Reactive (Non Reactive)
== END 2024-04-19 20:15 | disposition home or self-care (01) ==
LOC: ED 16:53 → OR 18:02 → MEDSURG 19:09
PROVIDERS: Emergency Provider Emergency Medicine; PCP Family Medicine; Visit Provider Obstetrics & Gynecology
PROC: (CPT 59812; principal; 2024-04-19 18:00)
DX: O07.1 Delayed or excessive hemorrhage following failed attempted termination of pregnancy (principal); Z11.3 Encounter for screening for infections with a predominantly sexual mode of transmission; F41.9 Anxiety disorder, unspecified
CPT/HCPCS: 59812; 00940; 36415; 76830; 80048; 81001; 81513; 83605; 84702; 85025; 86592; 86593; 86703; 86705; 86803; 86850; 86900; 86901; 87086; 87340; 87481; 87491; 87591; 87661; 88305; 99140; 99283; A9270; J0665; J1100; J1170; J1885; J2250; J2405; J2704; J3490

== ENCOUNTER 2024-05-05 15:57 | Emergency (ER) | payer OTHER, SELFPAY ==
--- NOTE | 2024-05-05 15:59 | ED_ITS ---
HPI - General Adult General Time Seen by Provider: 16:00 Date Seen: 05/05/24 Chief complaint: Abdominal Pain Stated complaint: abdominal pain Time Seen by Provider: 05/05/24 15:58 Source: patient, RN notes reviewed and old records reviewed Mode of arrival: ambulatory Limitations: no limitations History of Present Illness HPI narrative: 28-year-old female who presents today with abdominal pain. Patient underwent a medical in mid March followed by D and C on April 19. Notes for the last couple of days she has had suprapubic pain as well as some pain in the right lower quadrant tenderness, also some vaginal discharge which she says is like yeast infection. Current upper respiratory symptoms including nasal congestion, sore throat, and chills but no fever. Has not taken anything for symptoms. Related Data Previous Rx's ?Medication ?Instructions ?Recorded escitalopram oxalate 10 mg tablet 10 mg PO QDAY #30 tabs 01/26/24 (Lexapro) levonorgestrel-ethinyl estradiol 1 tab PO QDAY #84 tabs 05/01/24 0.1 mg-20 mcg tablet (Aviane) Allergies Allergy/AdvReac Type Severity Reaction Status Date / Time No Known Drug Allergies Allergy Verified 05/05/24 18:00 [facility] Medical History Chest pain ?R07.9 - Chest pain, unspecified (ICD-10) Acute pelvic inflammatory disease ?N73.0 - Acute parametritis and pelvic cellulitis (ICD-10) Miscarriage ?O03.9 - Complete or unspecified spontaneous without complication (ICD-10) No significant past medical history Surgical History H/O plastic surgery ?Z98.890 - Other specified postprocedural states (ICD-10) Social History What is your current living situation?: I presently have a place to live Problems where you live: no known problems In the past 12 months, utilities in danger of being shut off: no In past 12 months, lack of transportation kept you from medical appts, meetings, work, or getting things needed for daily living: no In the past 12 mos, have been you worried that your food would run out before you had money to buy more?: never true In the past 12 mos, the food you bought just didn't last and you didn't have money to buy more?: never true Smoking Status: Never smoker Do you use any of these nicotine containing products: None Second hand tobacco smoke exposure: No How often do you have a drink containing alcohol: never How often do you have six or more drinks on one occasion: Never AUDIT-C Alcohol total score: 0 Non-prescribed substance use: denies use How often does anyone, including family, friends and others, physically hurt you : never How often does anyone, including family, friends and others, insult or talk down to you: never How often does anyone, including family, friends and others, threaten you with harm: never How often does anyone, including family, friends and others, scream or curse at you: never Little interest or pleasure in doing things: not at all Feeling down, depressed, or hopeless: not at all service: No Exam Narrative: Exam Narrative: General: Well-developed and well-nourished, no acute distress Head: Atraumatic and normocephalic Eyes: Pupils are equal reactive, extraocular motions intact, conjunctiva clear ENT: External nose and ears are normal, posterior pharynx without erythema or exudate Neck: No midline cervical tenderness, full spontaneous range of motion the neck, trachea midline, no adenopathy Heart: Regular rate and rhythm no murmurs or thrills Lungs: Clear to auscultation bilaterally without wheezes or crackles Abdomen: Soft, nontender, nondistended with active bowel sounds Musculoskeletal: Suprapubic and right lower quadrant tenderness Neurologic: Awake, alert, and oriented x3, no gross focal neurologic deficits, cranial nerves intact as tested Psych: Mood and affect are appropriate Skin: No rashes Const: Vital Signs, click to edit/add: Vital Signs - 24 hr 05/05/24 16:06 Temperature 97.4 F L Pulse Rate [Pulse Oximeter] 80 Respiratory Rate 16 Blood Pressure [Ri ght Upper Arm] 106/70 Pulse Oximetry 99 Oxygen Delivery Me thod Room Air Course Course ED Course: Reviewed most recent Women's Health visit which was routine postoperative follow-up after D and C April 19 in the setting of suspected retained products of conception after a medically induced in March. At that time was still having mild cramping and spotting. Patient returns to the emergency department today with vaginal discharge as well as lower abdominal pain. On initial exam, vital is stable, well-appearing, suprapubic and right lower quadrant tenderness. Chaperoned pelvic exam will be performed as well as pelvic ultrasound. We did discuss possible other etiologies of patient's symptoms including acute appendicitis. Depending on findings on initial examination, consider CT scan abdomen and pelvis as well. Reevaluation(s) Time of Reevaluation #1: 16:51 Reevaluation #1: Pelvic exam performed, no discharge from the cervix and no vaginal discharge. Minimal cervical motion tenderness but quite tender on palpation on bimanual exam. Toradol is ordered and continue with ultrasound. Time of Reevaluation #2: 17:14 Reevaluation #2: Labs ordered and independently interpreted by me with normal CBC, normal basic panel, normal urinalysis. Time of Reevaluation #3: 17:42 Reevaluation #3: Ultrasound independently interpreted by me with no abnormalities of the uterus, endometrium 8 mm, no ovarian cyst. Given right lower quadrant pain and no evidence for ovarian pathology or uterine pathology, CT scan is ordered to evaluate for other intra-abdominal pathology. Labs ordered and independently interpreted by me with quantitative hCG of 6, down from 1447 weeks ago and consistent with miscarriage and D&C. Additional Reevaluation(s): 18:07 CT scan of the abdomen and pelvis independently interpreted by me without evidence for acute appendicitis. [address] scan which demonstrates small corpus luteum cyst on the right ovary. Care discussed with Dr. Waldron, social service liaison who feels that recent manipulation instrumentation along with corpus luteum cyst or likely source of pain today and recommends expectant management, no antibiotics at this time given no cervical motion tenderness, no discharge, negative gonorrhea and chlamydia testing. Vital Signs Vital signs: Initial Vital Signs Temperature 97.4 F L 05/05/24 16:06 Temperature Source Temporal Artery Scan 05/05/24 16:06 Pulse Rate 80 05/05/24 16:06 Respiratory Rate 16 05/05/24 16:06 Blood Pressure 106/70 05/05/24 16:06 Blood Pressure Mean 82 05/05/24 16:06 Blood Pressure Position Sitting 05/05/24 16:06 Pulse Oximetry 99 05/05/24 16:06 Oxygen Delivery Method Room Air 05/05/24 16:06 Vital Signs Temperature 97.4 F L 05/05/24 16:06 Pulse Rate 80 05/05/24 16:06 Respiratory Rate 16 05/05/24 16:06 Blood Pressure 106/70 05/05/24 16:06 Pulse Oximetry 99 05/05/24 16:06 Oxygen Delivery Method Room Air 05/05/24 16:06 Temperature 97.4 F L 05/05/24 16:06 Pulse Rate 80 05/05/24 16:06 Respiratory Rate 16 05/05/24 16:06 Blood Pressure 106/70 05/05/24 16:06 Pulse Oximetry 99 05/05/24 16:06 Oxygen Delivery Method Room Air 05/05/24 16:06 Medications Administered Medications: Discontinued Medications Generic Name Dose Route Start Last Admin Trade Name Freq PRN Reason Stop Dose Admin Ketorolac Tromethamine 15 mg 05/05/24 16:51 05/05/24 17:03 Ketorolac 15 Mg/Ml Inj IVP 05/05/24 16:52 15 mg ONCE ONE Administration Medical Decision Making Lab Data Labs: Lab Results 05/05/24 05/05/24 05/05/24 Range/Units 16:28 16:30 16:50 WBC 7.44 (4.50-11.00) K/uL RBC 3.95 L (4.00-5.20) m/uL Hgb 11.7 L (12.0-16.0) gm/dL Hct 36.0 (33.0-51.0) % MCV 91 (80-100) fL MCH 30 (26-34) pg MCHC 33 (32-36) gm/dL RDW Coeff of Tamia 12.9 (11.5-15.5) % Plt Count 282 (140-440) K/uL Neut % (Auto) 55.4 (42.0-72.0) % Lymph % (Auto) 30.2 (20-44) % Saline % (Auto) 8.1 (0.0-11.0) % Eos % (Auto) 5.5 (0.0-7.0) % Baso % (Auto) 0.7 (0.0-3.0) % Neut # (Auto) 4.12 (1.7-7.0) K/uL Lymph # (Auto) 2.25 (0.90-2.90) K/uL Saline # (Auto) 0.60 (0.00-0.90) K/UL Eos # (Auto) 0.41 (0.00-0.50) K/uL Baso # (Auto) 0.05 (0.00-0.30) K/uL Abs Immat Gran (auto) 0.01 (0.00-0.30) K/uL Imm/Tot Granulo (auto) 0.1 % Sodium 140 (135-149) mmol/L Potassium 3.8 (3.6-5.1) mmol/L Chloride 104 (96-114) mmol/L Carbon Dioxide 26 (20-32) mmol/L Anion Gap 10 (7-15) mEq/L BUN 14 (5-24) mg/dL Creatinine 0.5 (0.5-1.5) mg/dL Estimated Creat Clear 141.04 Estimated GFR 133 ml/min Glucose 86 (60-115) mg/dL Calcium 9.1 (8.4-10.6) mg/dL HCG, Quant 6.02 mIU/mL Urine Color Yellow (Yellow) Urine Appearance Clear (Clear) Urine pH 7.0 (5.0-8.5) Ur Specific [place] 1.025 (1.000-1.030) Urine Protein Negative (Negative) Urine Glucose (UA) Negative (Negative) Urine Ketones Negative (Negative) Urine Blood Negative (Negative) Urine Nitrite Negative (Negative) Urine Bilirubin Negative (Negative) Urine Urobilinogen 0.2 (0.2-1.0) Ur Leukocyte Esterase Negative (Negative) Urine RBC 0-2 (0-2) Urine WBC 0-2 (0-5) Ur Squamous Epith Cells Few (None-Few) Amorphous Sediment Moderate A (None) Urine Bacteria Few A (None) C.trachomatis Ampl DNA NOT DETECTED (No Detected) N.gonorrhoeae Ampl DNA NOT DETECTED (No Detected) Discharge Plan Discharge Clinical Impression: Pelvic pain, Corpus luteum cyst of right ovary Patient Disposition: Home, Self-Care Condition: Stable Instructions: Ovarian Cyst (ED), Pelvic Pain (ED) Additional Instructions: Take ibuprofen 600 mg every 6 hours for the next 5 days, supplement with Tylenol as needed Call social service liaison clinic [place] for follow-up Activity Level: Activity as Tolerated Discharge Diet: Regular Prescriptions: No Action escitalopram oxalate [Lexapro] 10 mg tablet 10 mg PO QDAY Qty: 30 0RF levonorgestrel-ethinyl estrad [Aviane] 0.1-20 mg-mcg tablet 1 tab PO QDAY Qty: 84 1RF Rx Instructions: Take active pills continuously, induce a period every 3 months Follow Up/Referrals: Celso Ibanez MD [Primary Care Provider] - Stand Alone Forms: PeerIndex Info Instructions
[2024-05-05 16:06] VITALS: BP 106/70; PULSE 80; RESP 16; TEMP 36.3; O2SAT 99; BMI 28.0
[2024-05-05 16:34] LABS: Appearance Urine Clear (Clear); Bilirubin Urine Negative (Negative); Blood Urine Negative (Negative); Color Urine Yellow (Yellow); Glucose Urine Negative (Negative); Ketones Urine Negative (Negative); Leukocyte Esterase Urine Negative (Negative); Nitrite Urine Negative (Negative); Protein Urine Negative (Negative); Specific Gravity Urine 1.025 (1.000-1.030); Urobilinogen Urine 0.2 (0.2-1.0)
--- NOTE | 2024-05-05 16:35 | CRLHL7_ITS ---
For Patients: As a result of the Century Cures Act, medical imaging exams and procedure reports are released immediately into your electronic medical record. You may view this report before your referring provider. If you have questions, please contact your health care provider. INDICATION: Abdominal pain. Comparison : Pelvic ultrasound dated 19 April 2024. Findings : An endovaginal pelvic ultrasound shows a uterus of normal size, contour, and echogenicity. Normal thickness of the endometrial stripe measuring 8 mm. Trace amount of free fluid in the endometrial canal. Normal appearance of the ovaries with the right ovary measuring 3.5 x 2.0 x 2.0 cm and the left ovary measuring 2.9 x 2.0 x 1.8 cm. Trace amount of free fluid in the pelvis. Impression : 1. No abnormalities of the uterus or ovaries identified. Dictated by Ángel Cohen MD @ 05/05/2024 6:46:14 PM (Electronically Signed)
[2024-05-05 16:40] LABS: Basophils Absolute Auto 0.05 K/uL (0.00-0.30); Basophils Percent Auto 0.7 % (0.0-3.0); Eosinophils Absolute Auto 0.41 K/uL (0.00-0.50); Eosinophils Percent Auto 5.5 % (0.0-7.0); Hemoglobin* 11.7 gm/dL (12.0-16.0); Immature Granulocytes Abs Auto 0.01 K/uL (0.00-0.30); Immature Granulocytes Pct Auto 0.1 %; Lymphocytes Absolute Auto 2.25 K/uL (0.90-2.90); Lymphocytes Percent Auto 30.2 % (20-44); Mean Corpuscular HGB Conc 33 gm/dL (32-36); Mean Corpuscular Hemoglobin 30 pg (26-34); Mean Corpuscular Volume 91 fL (80-100); Monocytes Percent Auto 8.1 % (0.0-11.0); Neutrophils Absolute Auto 4.12 K/uL (1.7-7.0); Neutrophils Percent Auto 55.4 % (42.0-72.0); Platelet Count* 282 K/uL (140-440); RDW Coefficient of Variation % 12.9 % (11.5-15.5); Red Blood Count 3.95 m/uL (4.00-5.20); White Blood Count* 7.44 K/uL (4.50-11.00)
[2024-05-05 16:44] LABS: Slide Review Reflex No
[2024-05-05 16:45] LABS: Amorphous Sediment Urine Moderate; Bacteria Urine Few; RBC Urine 0-2 (0-2); Squamous Epithelial Cell Urine Few (None-Few); WBC Urine 0-2 (0-5)
[2024-05-05 16:57] LABS: Chloride* 104 mmol/L (96-114); Sodium* 140 mmol/L (135-149)
[2024-05-05 16:58] LABS: Potassium* 3.8 mmol/L (3.6-5.1)
[2024-05-05 17:00] LABS: Anion Gap 10 mEq/L (7-15); Carbon Dioxide* 26 mmol/L (20-32); Creatinine* 0.5 mg/dL (0.5-1.5); Est. Creatinine Clearance* 141.04; Estimated Glomerular Filt Rate 133 ml/min
[2024-05-05 17:01] LABS: Blood Urea Nitrogen* 14 mg/dL (5-24); Calcium* 9.1 mg/dL (8.4-10.6); Glucose* 86 mg/dL (60-115)
[2024-05-05] MEDS: KETOROLAC 15 MG/ML inj IVP (17:03)
[2024-05-05 17:18] LABS: HCG Quantitative* 6.02 mIU/mL
--- NOTE | 2024-05-05 17:43 | CRLHL7_ITS ---
For Patients: As a result of the Century Cures Act, medical imaging exams and procedure reports are released immediately into your electronic medical record. You may view this report before your referring provider. If you have questions, please contact your health care provider. INDICATION: Right lower quadrant pain. TECHNIQUE: CT of the abdomen and pelvis acquired with 78 cc of Isovue 370 IV contrast. Coronal and sagittal reconstructions. COMPARISON: Same day pelvic ultrasound. FINDINGS: Liver: Normal in size and attenuation. No focal liver lesions. Portal veins are patent. Gallbladder and bile ducts: Unremarkable. No biliary dilation. Spleen: Unremarkable. Pancreas: Unremarkable. Adrenal glands: Unremarkable. Kidneys: Symmetric enhancement. No hydronephrosis or ureteral dilation. No obstructing urinary calculi identified. Underdistended urinary bladder with mild wall thickening. Reproductive organs: Retroverted uterus. Small corpus luteal cyst in the right ovary. GI tract/Peritoneum: No small bowel dilation. Moderate amount of stool throughout the colon. Negative appendix. No intraperitoneal free air. Trace free fluid in the pelvis is likely physiologic. Vasculature: Abdominal aorta is normal in caliber. Mesenteric arteries are patent. Lymph nodes: No lymphadenopathy. Abdominal Wall: Small fat containing umbilical hernia. Circumferential abdominal wall scarring. Bones: Unremarkable. Lower chest: Unremarkable. IMPRESSION: 1. Mild bladder wall thickening may be due to underdistention, however correlation with urinalysis is recommended. 2. Small corpus luteal cyst in the right ovary. 3. No other acute findings in the abdomen or pelvis. The appendix is negative. Please note that all CT scans at this facility use dose modulation, iterative reconstruction, and/or weight-based dosing when appropriate to reduce radiation dose to as low as reasonably achievable. Dictated by Elsy Romo MD @ 05/05/2024 6:58:32 PM (Electronically Signed)
[2024-05-05 18:25] LABS: Chlamydia DNA Amplified* NOT DETECTED (No Detected); GC DNA Amplified* NOT DETECTED (No Detected)
== END 2024-05-05 19:19 | disposition home or self-care (01) ==
PROVIDERS: Emergency Provider Family Medicine; PCP Family Medicine
DX: N83.11 Corpus luteum cyst of right ovary (principal)
CPT/HCPCS: 36415; 74177; 76830; 80048; 81001; 84702; 85025; 87086; 87491; 87591; 93976; 96374; 99284; 99285; J1885; Q9967

== ENCOUNTER 2024-10-09 14:53 | Emergency (ER) | payer OTHER, SELFPAY ==
--- OUTSIDE RECORDS SUMMARY | 2024-10-09 14:55 | XMS_ITS | Clinical Summary ---
Author Organization [employer] [facility] Address [address] [place] [id number] Care Team Providers Care Shed Workers Supervisor Name Role Phone Pcp, No Primary Care Provider Unavailabl e Allergies Active Allergy Reactions Criticality Noted Date Comments Horse/Equine Containing Products Medications cyclobenzaprine (FLEXERIL) 5 mg tabletIndication s:Bilateral low back pain without sciatica, unspecified chronicity Take 1 Tablet (5 mg) by mouth three times daily. 30 Tablet 12/05/2022 Active Active Problems Problem Noted Date Diagnosed Date Heartburn 10/02/2019 Adjustment disorder with mixed anxiety and depre ssed mood 01/19/2015 Resolved Problems Problem Noted Date Diagnosed Date Resolved Date Well child check 09/14/2011 05/28/2012 Immunizations Name Administration Dates Next Due DTaP 01/07/2003, 2,04/16/2002,03/05 Hepatitis A (Peds) 12/21/2009,06/03/2008 Hepatitis B (Peds) 01/07/2003,04/16/2002, 998 Hepatitis B, Unspecified 01/07/2003,04/16/2002,0 03/05/1998 Human Papilloma Virus Vaccine 06/17/2013, 011,11/09/2010 Inactivated Polio Vaccine 05/21/2002,04/16/2002, 03/05/1998 Influenza Virus, Unspecified 06/17/2013,06/03/20 08 Influenza, IIV3 (Age >=3 years) 11/09/2010 Influenza, IIV4 07/15/2019 Influenza,LAIV4 Live Intrana chris (Flumist) 06/17/2013,06/03/2008 MENINGOCOCCAL VACCINE 2 VIAL 2MO-55YO (MENVEO) 07/31/2014 MMR 01/07/2003,04/16/2002 Meningococcal Vaccine (Menactra) 12/21/2009 Meningococcal, Unspecified 12/21/2009 Tdap 12/21/2009 Tuberculin (PPD) 07/15/2019 Varicella Vaccine 12/21/2009,04/16/2002 Family History Medical History Relation Name Comments GI Disease Mother gallbladder out at 29 when Asthma No Family History Cancer-breast No Family History Diabetes No Family History Heart Disease No Family History Hyperlipidemia No Family History Relation Name Status Comments Mother Social History Tobacco Use Types Packs/Day Years Used Date Smoking Tobacco: Never Smokeless Tobacco: Never Tobacco Cessation:Counseling Given: Yes Alcohol Use Standard Drinks/Week Comments Yes 0 (1 standard drink = 0.6 oz pur e alcohol) occassional PHQ-2 Answer Date Recorded PHQ-2 TOTAL SCORE 2 11/15/2021 Social Connections Answer Date Recorded Frequency of Communication with Friends and Fami ly Not on file 03/21/2023 Financial Resource Strain Answer Date R ecorded Difficulty of Paying Living Expenses 3 03/07/2022 Difficulty of Paying Living Expenses Not on file 03/07/2022 Food Insecurity Answer Date Recorded Worried About Running Out of Food in the Last Ye ar 1 03/07/2022 Transportation Needs Answer Date Record ed Lack of Transportation (Medical) 1 03/07/2022 Housing Stability Answer Date Recorded Unable to Pay for Housing in the Last Year 1 03/07/2022 Comments No Sex and Gender Information Value Date Recorded Sex Assigned at Not on file Legal Sex Female 8:05 AM FOOT GATHERER Gender Identity Not on file Sexual Orientation Not on file 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 Not on file No t on file Obstetrics History Para Term AB IAB SAB Ectopic Multiple Livin g Live Births 1 1 1 Date Outcome GA Total Labor Labor/2nd/3rd Weight Sex Type Anes PTL Mary A1 A5 Name Clin SAB Last Filed Vital Signs Vital Sign Reading Time Taken Comments Blood Pressure 104/59 12/05/2022 3:31 PM CDT Pulse 77 12/05/2022 3:31 PM CDT Temperature 36.7 C (98.1 F) 12/05/2022 3:31 PM CDT Respiratory Rate 19 12/05/2022 3:31 PM CDT Oxygen Saturation 99% 12/05/2022 3:31 PM CDT Inhaled Oxygen Concentration - - Weight 78 kg (172 lb) 12/05/2022 3:31 PM CDT Height 160 cm (5' 3) 10/06/2021 9:34 AM FOOT GATHERER Body Mass Index 30.47 10/06/2021 9:34 AM FOOT GATHERER Plan of Treatment Health Maintenance Due Date Last Done Comments HIV for age 15-65 2012 Hepatitis C screening for age 18-79 12/12/2015 Tetanus booster 12/22/2019 12/21/2009 BMI (ht and wt on same day) for age 18+ 06/01/2022 06/01/2021, 11/25/2019, 10/02/2019, Additional history exists Depression screening for age 12+ 11/15/2022 11/15/2021, 05/05/2021, 12/10/2019, Additional history exists COVID-19 vaccine series () 04/21/2024 06/25/2021, 12/24/2020, 11/25/2020 Influenza for age 9-49 04/21/2024 9, 06/17/2013, 06/17/2013, Additional history exists Pap test for age 21-65 01/25/2027 01/26/2024, 2023 Tdap Completed 12/21/2009 HPV series for age 9-26 Completed 06/17/20 13, 12/10/2010, 11/09/2010 Pneumococcal series for age 6-49 Aged Out No longer eligible based on patient's age to complete this topic Procedures Procedure Name Priority Date/Time Associated Diagnosis Comments HPV HIGH RISK Routine 01/26/2024 12:00 PM CDT from Last 3 Months or Most Recently Relevant to Health Maintenance Results * HPV HIGH RISK (01/26/2024 12:00 PM CDT) TYPE 16 Negative Negative 02/01/2024 2:39 PM CDT [facility] TYPE 18 Negative Negative 02/01/2024 2:39 PM CDT [facility] TRA [facility]ATORY OTHER HIGH RISK TYPES Negative Negative 02/01/2024 2:39 PM CDT [facility] Other (Cervical) 01/26/2024 12:00 PM CDT 01/30/2024 9:21 AM CDT Narrative [facility] - 02/01/2024 2:39 PM CDT HPV types 16, 18, 31, 33, 35, 39, 45, 51, 52, 56, 58, 59, 66 and 68 DNA were undetectable or below the pre-set threshold. Methodology: Korina Shandra 4800 HPV Test us Luisa Akhtar NP MICROBIOLOGY Final Res ult [facility] [address] [place] [address], from Last 3 Months or Most Recently Relevant to Health Maintenance Insurance [facility] * Guarantor: [employer] [facility] [employer] Account Type Relation to Patient Date of Phone Billing Address [facility] Other [facility] - [facility] [place] [address] [facility] [address] [place] [id number] Care Teams Shed Workers Supervisor Relationship Specialty Start Date End Date Pcp, No . PCP - General 08/27/24
--- OUTSIDE RECORDS SUMMARY | 2024-10-09 14:55 | XMS_ITS | Clinical Summary ---
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 Gender Identity Not on file Sexual Orientation Not on file Last Filed Vital Signs Vital Sign Reading Time Taken Comments Blood Pressure 97/82 04/17/2024 10:55 PM CDT Pulse 110 04/17/2024 11:16 PM CDT Temperature 37.3 C (99.1 F) 04/17/2024 10:21 PM CDT Respiratory Rate 28 04/17/2024 11:16 PM CDT Oxygen Saturation 100% 04/17/2024 11:16 PM CDT Inhaled Oxygen Concentration - - Weight 72.6 kg (160 lb) 04/17/2024 10:21 PM CDT Height 160 cm (5' 3) 04/17/2024 10:21 PM CDT Body Mass Index 28.34 04/17/2024 10:21 PM CDT Plan of Treatment Upcoming Encounters Date Type Department Care Team (Late st Contact Info) Description 10/31/2024 9:30 AM CDT Office Visit [place] [address] [place] [phone] Luisa Akhtar APRN [facility] [address] [place] [address] Kim Diaz MD [address] [place] [address] Health Maintenance Due Date Last Done Comments ADVANCE CARE PLANNING 1997 ANNUAL REVIEW OF HM ORDERS 1997 YEARLY PREVENTIVE VISIT 2000 DTAP/TDAP/TD IMMUNIZATION (6 - Td or Tdap) 12/22/2019 12/21/2009, 01/07/2003, 05/21/2002, Additional history exists COVID-19 Vaccine ( season) 2024 06/25/2021, 12/24/2020, 11/25/2020 INFLUENZA VACCINE (#1) 2024 9, 06/17/2013, 11/09/2010, Additional history exists PHQ-2 (once per calendar year) 2024 PAP 01/25/2027 01/26/2024, 01/26/2024 ZOSTER IMMUNIZATION (1 of 2) 12/12/2047 HEPATITIS B IMMUNIZATION Completed 003, 04/16/2002, 03/05/1998 HPV IMMUNIZATION Completed 06/17/2013, , 11/09/2010 MENINGITIS IMMUNIZATION Completed 07/31/2014, 12/21 HEPATITIS C SCREENING Completed 12/05/2023 HIV SCREENING Completed 12/05/2023 Pneumococcal Vaccine: Pediatrics (0 to 5 Years) and At-Risk Patients (6 to 49 Years) Aged Out No longer eligible based on patient's age to complete this topic Procedures Procedure Name Priority Date/Time Associated Diagnosis Comments ABSTRACT HIV Routine 12/05/2023 4:30 PM CDT HEPATITIS C (HIM EXTERNAL RESULT) Routine 12/05/2023 4:30 PM CDT from Last 3 Months or Most Recently Relevant to Health Maintenance Results * ABSTRACT HIV (12/05/2023 4:30 PM CDT) HIV 1&2 EXT Non-Reacti ve [facility] Blood 12/05/2023 4:[address] [facility] - 12/05/2023 4:[address] [facility]-External Lab Results us Provider Outside LAB - HIM EXTERNAL RESULT Final Result [facility] [address] [place], [place] [address] [phone] * Hepatitis C (HIM External Result) (12/05/2023 4:30 PM CDT) Hep C HIM See Scanned Document [facility] 12/05/2023 4:30 PM CDT us Provider Outside LAB - HIM EXTERNAL RESULT Final Result Performing Organization Address [facility]/ZIP Co de Phone Number [facility] [address] [place] [address], [facility] [phone] from Last 3 Months or Most Recently Relevant to Health Maintenance Insurance [employer] [facility] Address: [place] [address] Care Teams Data Security Coordinator Relationship Specialty Start Date End Date [address] [address] PCP - General 12/10/15 Kim Diaz MD [facility] Karlene DOVER [facility] [address] [place] [address] Hospitalist Endocrinology, Diabetes, and Metabolism 03/14/24
[2024-10-09 14:57] VITALS: BP 119/79; PULSE 78; RESP 16; TEMP 36.7; O2SAT 100
--- NOTE | 2024-10-09 15:04 | ED.GENADULT ---
HPI - General Adult General Time Seen by Provider: 15:04 Date Seen: 10/09/24 Chief complaint: Unspecified Complaint, Adult Stated complaint: Post operation medications needed Time Seen by Provider: 10/09/24 15:03 Source: patient and RN notes reviewed Mode of arrival: ambulatory Limitations: no limitations History of Present Illness HPI narrative: This 28yo female is coming in with cramping from D&C for elective at [facility] not managed with Tylenol and ibuprofen. She had this done yesterday. She has had no fevers. Bleeding is mild, not concerning to her at all. She contacted the facility and they were not going to be able to provide her with medication for 24 hours. They recommended that she be seen in UC or ED. She believes that she has taken oxycodone before with prior D&C without complication. Related Data Previous Rx's ?Medication ?Instructions ?Recorded escitalopram oxalate 10 mg tablet 10 mg PO QDAY #30 tabs 05/31/24 (Lexapro) oxycodone 5 mg tablet 5 mg PO Q6H PRN pain #6 tabs 10/09/24 Allergies Allergy/AdvReac Type Severity Reaction Status Date / Time No Known Drug Allergies Allergy Verified 08/08/24 18:49 Review of Systems Narrative: As per HPI. PFS PFS Medical History Chest pain ?R07.9 - Chest pain, unspecified (ICD-10) Acute pelvic inflammatory disease ?N73.0 - Acute parametritis and pelvic cellulitis (ICD-10) Miscarriage ?O03.9 - Complete or unspecified spontaneous without complication (ICD-10) No significant past medical history Surgical History H/O plastic surgery ?Z98.890 - Other specified postprocedural states (ICD-10) Social History What is your current living situation?: I presently have a place to live Problems where you live: no known problems In the past 12 months, utilities in danger of being shut off: no In past 12 months, lack of transportation kept you from medical appts, meetings, work, or getting things needed for daily living: no In the past 12 mos, have been you worried that your food would run out before you had money to buy more?: never true In the past 12 mos, the food you bought just didn't last and you didn't have money to buy more?: never true Smoking Status: Never smoker Do you use any of these nicotine containing products: None Second hand tobacco smoke exposure: No How often do you have a drink containing alcohol: never How often do you have six or more drinks on one occasion: Never AUDIT-C Alcohol total score: 0 Non-prescribed substance use: denies use How often does anyone, including family, friends and others, physically hurt you: never How often does anyone, including family, friends and others, insult or talk down to you: never How often does anyone, including family, friends and others, threaten you with harm: never How often does anyone, including family, friends and others, scream or curse at you: never service: No Exam Const: Vital Signs, click to edit/add: Vital Signs - 24 hr 10/09/24 14:57 Temperature 98.1 F Pulse Rate [Pulse Oximeter] 78 Respiratory Rate 16 Blood Pressure [Ri ght Upper Arm] 119/79 Pulse Oximetry 100 Oxygen Delivery Me thod Room Air This very pleasant 28-year-old female that is very well kept is ambulatory into the ED of her own accord. She is alert, interactive, no apparent distress. Speech is normal. Breathing easy on room air, lungs clear. CV regular rate and rhythm. Abdomen is soft, nondistended, nontender, no rebound or guarding, no organomegaly or masses noted. Pelvic exam deferred. Documenting provider has reviewed patient's vital signs: yes Course Course ED Course: Will give patient small amount of oxycodone, do think that is reasonable. 4 tablets will be sent to the pharmacy. She plans on going back to work and hopefully will not need more narcotics beyond that. If she needs further pain management, will need to [facility] or through primary care provider. Vital Signs Vital signs: Initial Vital Signs Temperature 98.1 F 10/09/24 14:57 Temperature Source Temporal Artery Scan 10/09/24 14:57 Pulse Rate 78 10/09/24 14:57 Respiratory Rate 16 10/09/24 14:57 Blood Pressure 119/79 10/09/24 14:57 Blood Pressure Mean 92 10/09/24 14:57 Blood Pressure Position Sitting 10/09/24 14:57 Pulse Oximetry 100 10/09/24 14:57 Oxygen Delivery Method Room Air 10/09/24 14:57 Vital Signs Temperature 98.1 F 10/09/24 14:57 Pulse Rate 78 10/09/24 14:57 Respiratory Rate 16 10/09/24 14:57 Blood Pressure 119/79 10/09/24 14:57 Pulse Oximetry 100 10/09/24 14:57 Oxygen Delivery Method Room Air 10/09/24 14:57 Temperature 98.1 F 10/09/24 14:57 Pulse Rate 78 10/09/24 14:57 Respiratory Rate 16 10/09/24 14:57 Blood Pressure 119/79 10/09/24 14:57 Pulse Oximetry 100 10/09/24 14:57 Oxygen Delivery Method Room Air 10/09/24 14:57 Discharge Plan Discharge Clinical Impression: Post-operative pain Patient Disposition: Home, Self-Care Condition: Stable Instructions: Pain Management After Surgery (DC) Additional Instructions: Can continue with Tylenol 1000 mg 3 times a day. Use ibuprofen per bottle directions as needed for subsequent pain management. Have written for a few tablets of oxycodone, cannot drive or operate machinery on these. Recommend using MiraLax to prevent narcotic associated constipation while using the oxycodone. Follow postoperative instructions from your DN see from the facility where it was done. Prescriptions: New oxycodone 5 mg tablet 5 mg PO Q6H PRN (Reason: pain) Qty: 6 0RF No Action escitalopram oxalate [Lexapro] 10 mg tablet 10 mg PO QDAY Qty: 30 2RF Follow Up/Referrals: Celso Ibanez MD [Primary Care Provider] - Stand Alone Forms: [employer] Info Instructions
--- OUTSIDE RECORDS SUMMARY | 2024-10-09 15:27 | XMS_ITS | Clinical Summary ---
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 Gender Identity Not on file Sexual Orientation Not on file Occupation Industry Job Start Date Job End Date [employer] Not on file Not on file No [...] 160 cm (5' 3) 10/06/2021 9:34 AM FRANCHISE DEVELOPMENT MANAGER Body Mass Index 30.47 10/06/2021 9:34 AM FRANCHISE DEVELOPMENT MANAGER Plan of Treatment Health Maintenance Due Date [...] 16 Negative Negative 02/01/2024 2:39 PM CDT [facility] TRAL LABORATORY TYPE 18 Negative Negative 02/01/2024 2:39 PM CDT [facility] TRA LABORATORY OTHER HIGH RISK TYPES Negative Negative 02/01/2024 2:39 PM CDT [facility] TRAL LABORATORY Other (Cervical) 01/26/2024 12:00 PM CDT 01/30/2024 9:21 AM CDT Narrative [facility] - 02/01/2024 2:39 PM CDT HPV types 16, 18, 31, 33, 35, 39, 45, 51, 52, 56, 58, 59, 66 and 68 DNA were undetectable or below the pre-set threshold. Methodology: Korina Shandra 4800 HPV Test us Luisa Akhtar NP MICROBIOLOGY Final Res ult [facility] [address] [place] [address], from Last 3 Months or Most Recently Relevant to Health Maintenance Insurance [facility] * Guarantor: [facility] [employer] Account Type Relation to Patient Date of Phone Billing Address [facility] Other FAMILY PLAN - [place] [address] [facility] [place] [phone] Care Teams Veneer Supervisor Relationship Specialty Start Date End Date Pcp, No . PCP - General 08/27/24
--- OUTSIDE RECORDS SUMMARY | 2024-10-09 15:27 | XMS_ITS | Clinical Summary ---
Author Organization [facility] Address [address] [place] [address] Care Team Providers Care Plant Assigner Name Role Phone Janette [facility] Primary Care Provider Kim Diaz MD Unavailable [phone] Allergies No known active allergies Medications Ferrous Sulfate (IRON SUPPLEMENT PO) Active Social History Tobacco Use Types Packs/Day Years Used Date Smoking Tobacco: Never Alcohol Use Standard Drinks/Week Comments No 0 (1 standard drink = 0.6 oz pur e alcohol) Comments Yes Sex and Gender Information Value Date Recorded Sex Assigned at Not on file 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 Sex 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 Gender Identity Not on file Sexual Orientation [...] Description 10/31/2024 9:30 AM CDT Office Visit [place] [address] [place] [phone] Luisa Akhtar APRN [facility] [address] [place] [address] Kim Diaz MD [address] [place] [address] Health Maintenance Due Date Last Done Comments [...] PM CDT) HIV 1&2 EXT Non-Reacti ve [facility] Blood 12/05/2023 4:30 PM CDT Narrative [facility] - 12/05/2023 4:30 PM CDT [facility]-External Lab Results us Provider Outside LAB - HIM EXTERNAL RESULT Final Result [facility] [address] [place], [place] [address] [phone] * Hepatitis C (HIM External Result) (12/05/2023 4:30 PM CDT) Hep C HIM See Scanned Document [facility] 12/05/2023 4:30 PM CDT us Provider Outside LAB - HIM EXTERNAL RESULT Final Result Performing Organization Address [facility]/ZIP Co de Phone Number [facility] [address] [place] [address], [facility] [phone] from Last 3 Months or Most Recently Relevant to Health Maintenance Insurance [employer] Care Teams Plant Assigner Relationship Specialty Start Date End Date [address] [address] PCP - General 12/10/[address] [facility] Karlene DOVER [facility] [address] [place] [address] Hospitalist Endocrinology, Diabetes, and Metabolism 03/14/24
[2024-10-09 15:46] VITALS: RESP 18
== END 2024-10-09 15:48 | disposition home or self-care (01) ==
LOC: ED 15:25
PROVIDERS: Emergency Provider Family Medicine; PCP Family Medicine
DX: G89.18 Other acute postprocedural pain (principal); Z76.0 Encounter for issue of repeat prescription
CPT/HCPCS: 99282; 99283

== ENCOUNTER 2025-01-15 21:17 | Emergency (ER) | payer OTHER, SELFPAY ==
--- OUTSIDE RECORDS SUMMARY | 2025-01-12 15:06 | XMS_ITS | Encounter Summary ---
Author Organization [place] Address [address] [place] [address] Care Team Providers Care Business Analytics Specialist Name Role Phone [facility] [place] Primary Care Provider Kim Diaz MD Unavailable [phone] Reason for Visit * Reason Comments Vaginal Bleeding - Encounter Details Date Type Department Care Team (Late st Contact Info) Description 01/12/2025 3:06 PM CDT - 01/12/2025 5:11 PM CDT Emergency [facility] Emergency Dept [address] [place] [address] [phone] Rohit Marie MD [facility] [address] [place] [address] [place] [id number] Vaginal bleeding in , first trimester; Subchorionic [...] on file 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 I would recommend follow-up with PLATFORM ATTENDANT provider in 2 days for recheck and [...] your vagina. Follow-up as directed with your PLATFORM ATTENDANT provider. 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 At this time, there isno evidence of ovarian or adnexal lesion that would raise suspicion for ectopic . Results and clinical impression discussed with patient and significant other. We discussed the differential diagnosis including early , miscarriage as well as ectopic . I have stressed the importance of follow-up with PLATFORM ATTENDANT provider in 2 days for recheck. We [...] statements to me. Rohit Marie MD 01/12/25 2240 * Esme Spears, RN - 01/12/2025 2:18 [...] 1ST TRIMESTER W TRANSVAGINAL W DOPPLER LOCATION: [facility] DATE: 01/12/2025 INDICATION: vag bleeding w pain [...] amount of free fluid. Procedure Note Medhat Marquez MD - 01/12/2025 EXAM: US OB 1ST TRIMESTER W TRANSVAGINAL W DOPPLER LOCATION: [facility] DATE: 01/12/2025 INDICATION: vag bleeding w pain [...] arcuate versus septateuterus. us Mario Guthrie MD [facility] ORDERABLES Final Result * Basic metabolic panel [...] LAB - BLOOD ORDERABLES Fin al Result [facility] Care Lab [address] Lab (1st floor, no room number) [place] [address] * (ABNORMAL) HCG QUANTitative (blood) (01/12/2025 2:48 [...] LAB - BLOOD ORDERABLES Fin al Result [facility] Care Lab [address] Lab (1st floor, no room number) [place] [address] * Extra Green Top ([place] Heparin) Tube (01/12/2025 2:48 PM CDT) Hold Specimen [facility] 01/12/2025 4:04 PM CDT [facility] LAB[facility] Blood STRUCTURE OF LEFT UPPER LIMB / Unknown Venipuncture / Unknown 01/12/2025 2:48 PM CDT 01/12/2025 2:57 PM CDT Rohit Marie MD LAB - BLOOD ORDERABLES Fin al Result [facility] Care Lab [address] Lab (1st floor, no room number) [place] [address] * Extra Red Top Tube (01/12/2025 2:48 PM CDT) Hold Specimen [facility] 01/12/2025 4:04 PM CDT [facility] LABORATORY Blood STRUCTURE OF LEFT UPPER LIMB / Unknown Venipuncture / Unknown 01/12/2025 2:48 PM CDT 01/12/2025 2:57 PM CDT Rohit Marie MD LAB - BLOOD ORDERABLES Fin al Result [facility] [address] Lab (1st floor, no room number) [place] [id number] [place] [address] * Extra Blue Top Tube (01/12/2025 2:48 PM CDT) Hold Specimen [facility] 01/12/2025 4:04 PM CDT [facility] LAB[facility]AT[facility] Blood STRUCTURE OF LEFT UPPER LIMB / Unknown Venipuncture / Unknown 01/12/2025 2:48 PM CDT 01/12/2025 2:57 PM CDT Rohit Marie MD LAB - BLOOD ORDERABLES Fin al Result Performing Organization Address City/[facility]/ZIP Co de Phone Number [facility] Lab [address] Lab (1st floor, no room number) [address] * Adult Type and Screen (01/12/2025 2:48 PM CDT) ABO/RH(D) O POS 01/12/2025 2:25 PM CDT [facility] BLOOD BANK Antibody Screen Negative Negative 01/12/2025 2:25 PM CDT [facility] BLOOD BANK SPECIMEN EXPIRATION DATE [id number] 01/12/2025 2:25 PM CDT [facility] BLO[facility] BANK Blood STRUCTURE OF LEFT UPPER LIMB / Unknown Venipuncture / Unknown 01/12/2025 2:48 PM CDT 01/12/2025 2:57 PM CDT Mario Guthrie MD LAB - BLOOD BANK TEST ORDER Michelle gerardo Result [facility] [place] [address], [facility] * (ABNORMAL) CBC with platelets and differential [...] BLOOD ORDERABLES Final Res ult [facility] LABORATORY [facility] Acute Care Lab [address] Lab (1st floor, no room number) [place] [address] documented in this encounter Visit Diagnoses Diagnosis Vaginal bleeding in , first trimester Subchorionic hematoma in first trimester, single or unspecified fetus Abnormality of uterus during in first trimester documented in this encounter Care Teams Business Analytics Specialist Relationship Specialty Start Date End Date [facility], [address] [address] PCP - General 12/10/15 Kim Diaz MD [address] [place] [address] Hospitalist Endocrinology, Diabetes, and Metabolism 03/14/24 documented as of this encounter
--- OUTSIDE RECORDS SUMMARY | 2025-01-15 21:19 | XMS_ITS | Clinical Summary ---
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 Not on file No [...] 160 cm (5' 3) 10/06/2021 9:34 AM REFINISHER Body Mass Index 30.47 10/06/2021 9:34 AM REFINISHER Plan of Treatment Health Maintenance Due Date Last Done Comments HIV for age 15-65 2012 Hepatitis C screening for age 18-79 12/12/2015 Tetanus booster 12/22/2019 12/21/2009 BMI (ht and wt on same day) for age 18+ 06/01/2022 06/01/2021, 11/25/2019, 10/02/2019, Additional history exists Depression screening for age 12+ 11/15/2022 11/15/2021, 05/05/2021, 12/10/2019, Additional history exists COVID-19 vaccine series ( season) 2024 06/25/2021, 12/24/2020, 11/25/2020 Influenza Vaccine (Season Ended) 2025 07/15/2019, 06/17/2013, 06/17/2013, Additional history exists Pap test for age 21-65 01/25/2027 01/26/2024, 2023 Hepatitis B series for 19+ Completed 01/07, 01/07/2003, 04/16/2002, Additional history exists Tdap Completed 12/21/2009 Pneumococcal series for age 6-49 Aged Out No longer eligible based on patient's age to complete this topic Procedures Procedure Name Priority Date/Time Associated Diagnosis Comments SHROUD LINE TIER THIN PREP PAP SCREEN IMAGED Routine 01/26/2024 12:00 PM CDT from Last 3 Months or Most Recently Relevant to Health Maintenance Results * SHROUD LINE TIER THIN PREP PAP SCREEN IMAGED (01/26/2024 12:00 PM CDT) Case Report Gynecologic Cytology Report Case: [id number] Authorizing Provider: Luisa Akhtar NP Collected: 01/26/2024 1200 Ordering Location: [facility] Received: 01/30/2024 0921 First Screen: Beata Garvin Specimen: SHROUD LINE TIER ThinPrep Vial Screening, Cervical 02/06/2024 1:39 PM CDT [facility] INTERPRETATION/ RESULT NEGATIVE FOR INTRAEPITHELIAL LESION OR MALIGNANCY (NIL) (none) 02/06/2024 1:39 PM CDT [facility] at 1339 CDT ORGANISM(S) Shift in des suggestive of bacterial vaginosis 02/06/2024 1:39 PM CDT [facility] SPECIMEN ADEQUACY Satisfactory for evaluation Endocervical component present 02/06/2024 1:39 PM CDT [facility] HPV REQUEST HPV and PAP 02/06/2024 1:39 PM CDT [facility] Date of LMP 01/09/2024 02/06/2024 1:39 PM CDT [facility] Last Pap Result First Pap/Unknown 1:39 PM CDT [facility] Abnormal Pap or [place] Bx in last 5 years No 02/06/2024 1:39 PM CDT [facility] Menstrual Status Regular Periods 02/06/2024 1:39 PM CDT [facility] [place] Bx Done Today No 02/06/2024 1:39 PM CDT [facility] Additional Information 02/06/2024 1:39 PM CDT [facility] Comment: Interpreted at [facility] Central Laboratory - [address], [place] [address] Automated Review Successful 02/06/2024 1:39 PM CDT [facility] Comment:Specimen processed s uccessfully by automated grain cleaner and transfer operator device, ThinPrep Imaging System, [employer] ANCILLARY TESTING SHROUD LINE TIER HPV Ordered, Please see separate report 02/06/2024 1:39 PM CDT [facility] Note The pap test is a screening technique, not a diagnostic procedure. It is used primarily to screen for squamous cancers and precursor lesions. Published studies have shown that it is subject to both false negative and false positive results. The pap test should not be used as the sole means to diagnose or exclude pre-malignant and malignant lesions. 02/06/2024 1:39 PM CDT [facility] LABORATORY-C ENTRAL LABORATORY Other (Cervical) 01/26/2024 12:00 PM CDT 01/30/2024 9:21 AM CDT us Luisa Akhtar NP PATHOLOGY/CYTOLOGY Final Result [facility] LABORAT[facility]-CENTRAL LABORATORY [address] [place] [address], from Last 3 Months or Most Recently Relevant to Health Maintenance Insurance [facility] Care Teams Chiropractic Doctor Relationship Specialty Start Date End Date Pcp, No . PCP - General 08/27/24
--- OUTSIDE RECORDS SUMMARY | 2025-01-15 21:20 | XMS_ITS | Encounter Summary ---
Author Organization [place] Address [address] [place] [address] Care Team Providers Care Manager Business Name Role Phone 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
--- OUTSIDE RECORDS SUMMARY | 2025-01-15 21:20 | XMS_ITS | Clinical Summary ---
Author Organization [place] Address [address] [place] [address] Care Team Providers Care Squad Boss Name Role Phone Janette, [facility] Primary Care Provider Kim Diaz MD Unavailable [phone] Allergies No known active allergies Medications Ferrous Sulfate (IRON SUPPLEMENT PO) Active Encounters Date Type Department Care Team Description 01/12/2025 3:06 PM CDT - 01/12/2025 5:[address] 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 Gender Identity Not on file Sexual Orientation [...] Mass Index 29.95 01/12/2025 2:21 PM CDT Plan of Treatment Health Maintenance Due Date Last Done Comments ADVANCE CARE PLANNING 1997 ANNUAL REVIEW OF HM ORDERS 1997 YEARLY PREVENTIVE VISIT 2000 DTAP/TDAP/TD VACCINE (6 - Td or Tdap) 12/22/2019 12/21/2009, 01/07/2003, 05/21/2002, Additional history exists COVID-19 VACCINE ( season) 2024 06/25/2021, 12/24/2020, 11/25/2020 PHQ-2 (once per calendar year) 2024 INFLUENZA VACCINE (Season Ended) 2025 07/15/2019, 06/17/2013, 11/09/2010, Additional history exists PAP 01/25/2027 01/26/2024, 01/26/2024 ZOSTER VACCINE (1 of 2) 12/12/2047 HEPATITIS B VACCINE Completed 01/07/2003, 04/16/2002, 03/05/1998 HPV VACCINE Completed 06/17/2013, 11/20, 11/09/2010 MENINGITIS VACCINE Completed 07/31/2014, 12/21/2009 HEPATITIS C SCREENING Completed 12/05/2023 HIV SCREENING Completed 12/05/2023 PNEUMOCOCCAL VACCINE: PEDIATRICS (0 to 5 YEARS) AND AT-RISK PATIENTS (6 to 49 YEARS) Aged Out No longer eligible based on patient's age to complete this topic Procedures Procedure Name Priority Date/Time Associated Diagnosis Comments US OB 1ST TRIMESTER W TRANSVAGINAL W DOPPLER STAT 01/12/2025 4:09 PM CDT ABO/RH TYPE AND SCREEN STAT 01/12/2025 2:48 PM CDT CBC WITH PLATELETS & DIFFERENTIAL STAT 01/12/2025 2:48 PM CDT TYPE AND SCREEN, ADULT STAT 01/12/2025 2:48 PM CDT BASIC METABOLIC PANEL STAT 01/12/2025 2:48 PM CDT HCG QUANTITATIVE STAT 01/12/2025 2:48 PM CDT EXTRA GREEN TOP (LITHIUM HEPARIN) TUBE STAT 01/12/2025 2:48 PM CDT EXTRA RED TOP TUBE STAT 01/12/2025 2: 48 PM CDT EXTRA BLUE TOP TUBE STAT 01/12/2025 2 :48 PM CDT CBC WITH PLATELETS AND DIFFERENTIAL STAT 01/12/2025 2:48 PM CDT EXTRA TUBE STAT 01/12/2025 2:48 PM CDT ABSTRACT HIV Routine 12/05/2023 4:30 PM CDT HEPATITIS C (HIM EXTERNAL RESULT) Routine 12/05/2023 4:30 PM CDT from Last 3 Months or Most Recently Relevant to Health Maintenance Results * US OB 1st Trimester W [...] 1ST TRIMESTER W TRANSVAGINAL W DOPPLER LOCATION: [facility] DATE: 01/12/2025 INDICATION: vag bleeding w [...] 1ST TRIMESTER W TRANSVAGINAL W DOPPLER LOCATION: [facility] DATE: 01/12/2025 INDICATION: vag bleeding w [...] uterine abnormality, may reflect arcuate versus septateuterus. Mario Guthrie MD [facility] US ORDERABLES Final Result * Extra Green Top ([place] Heparin) Tube (01/12/2025 2:48 PM CDT) [facility] Specimen [facility] 01/12/2025 4:04 PM CDT LABORATORY Blood STRUCTURE OF LEFT UPPER LIMB / Unknown Venipuncture / Unknown 01/12/2025 2:48 PM CDT 01/12/2025 2:57 PM CDT Rohit Marie MD LAB - BLOOD ORDERABLES Fin al Result LABORATORY [facility] Acute Care Lab [address] Lab (1st floor, no room number) [place] [address] * Extra Red Top Tube (01/12/2025 2:48 PM CDT) Hold Specimen [facility] 01/12/2025 4:04 PM CDT [facility] LABORATORY Blood STRUCTURE OF LEFT UPPER LIMB / Unknown Venipuncture / Unknown 01/12/2025 2:48 PM CDT 01/12/2025 2:57 PM CDT Rohit Marie MD LAB - BLOOD ORDERABLES Fin al Result LABORATORY [facility] Lab [address] Lab (1st floor, no room number) [place] [address] * Extra Blue Top Tube (01/12/2025 2:48 PM CDT) Hold Specimen [facility] 01/12/2025 4:04 PM CDT RH LABORATORY Blood STRUCTURE OF LEFT UPPER LIMB / Unknown Venipuncture / Unknown 01/12/2025 2:48 PM CDT 01/12/2025 2:57 PM CDT Rohit Marie MD LAB - BLOOD ORDERABLES Fin al Result [facility] Lab [address] Lab (1st floor, no room number) [place] [address] * (ABNORMAL) CBC with platelets and differential [...] CDT Mario Guthrie MD LAB - BLOOD ORDERABLES Final Res ult [facility] Acute Care Lab [address] Lab (1st floor, no room number) [place] [address] * Adult Type and Screen (01/12/2025 2:48 PM CDT) ABO/RH(D) O POS 01/12/2025 2:25 PM CDT RH BLOOD BANK Antibody Screen Negative Negative 01/12/2025 2:25 PM CDT RH BLOOD BANK SPECIMEN EXPIRATION DATE [id number] 01/12/2025 2:25 PM CDT RH BLOOD BANK Blood STRUCTURE OF LEFT UPPER LIMB / Unknown Venipuncture / Unknown 01/12/2025 2:48 PM CDT 01/12/2025 2:57 PM CDT Maroi Guthrie MD LAB - BLOOD BANK TEST ORDER Michelle l Result Performing Organization Address [facility]/ZIP Co de Phone Number BLOOD BANK [address] [place] [address] * (ABNORMAL) HCG QUANTitative (blood) [...] LAB - BLOOD ORDERABLES Fin al Result [facility] Acute Care Lab [address] Lab (1st floor, no room number) [place] [address], [facility] * Basic metabolic panel (BMP) (01/12/2025 2:48 PM CDT) [facility] Sodium 139 135 - 145 mmol/L 01/12/2025 3:42 PM CDT LABORATORY Potassium 3.7 3.4 - 5.3 mmol/L 01/12/2025 3:42 PM CDT LABORATORY Chloride 104 98 - 107 mmol/L 01/12/2025 3:42 PM CDT LABORATORY Carbon Dioxide (CO2) 22 22 - 29 mmol/L 01/12/2025 3:42 PM CDT LABORATORY Anion Gap 13 7 - 15 mmol/L 01/12/2025 3:42 PM CDT LABORATORY Urea Nitrogen 9.3 6.0 - 20.0 mg/dL 01/12/2025 3:42 PM CDT LABORATORY Creatinine 0.62 0.51 - 0.95 mg/dL 01/12/2025 3:42 PM CDT LABORATORY GFR Estimate >90 >60 mL/min/1.7 3m2 01/12/2025 3:42 PM CDT LABORATORY Comment:eGFR calculated 2020 CKD-EPI equation. Calcium 9.4 8.8 - 10.4 mg/dL 01/12/2025 3:42 PM CDT LABORATORY Glucose 92 70 - 99 mg/dL 01/12/2025 3:42 PM CDT LABORATORY Blood STRUCTURE OF LEFT UPPER LIMB / Unknown Venipuncture / Unknown 01/12/2025 2:48 PM CDT 01/12/2025 2:57 PM CDT us Rohit Marie MD LAB - BLOOD ORDERABLES Fin al Result LABORATORY [facility] Acute Care Lab [address] Lab (1st floor, no room number) [place] [address], [facility] * ABSTRACT HIV (12/05/2023 4:30 PM CDT) [facility] HIV 1&2 EXT Non-Reacti ve [facility] Blood 12/05/2023 4:30 PM CDT Narrative [facility] - 12/05/2023 4:30 PM CDT [facility]-External Lab Results us Provider Outside LAB - HIM EXTERNAL RESULT Final Result [facility] [address] [place] [address], [facility] [phone] * Hepatitis C (HIM External Result) (12/05/2023 4:30 PM CDT) Hep C HIM See Scanned Document [facility] 12/05/2023 4:30 PM CDT us Provider Outside LAB - HIM EXTERNAL RESULT Final Result Performing Organization Address City/[facility]/ZIP Co de Phone Number [facility] [address] [place] [address], [facility] [phone] from Last 3 Months or Most Recently Relevant to Health Maintenance Insurance [employer] Care Teams Squad Boss Relationship Specialty Start Date End Date [facility], [address] [address] PCP - General 12/10/15 Kim Diaz MD [address] [address] Hospitalist Endocrinology, Diabetes, and Metabolism 03/14/24
[2025-01-15 21:24] VITALS: BP 146/92; PULSE 100; RESP 20; TEMP 37.1; O2SAT 97; BMI 27.6
--- NOTE | 2025-01-15 21:41 | ED.GENADULT ---
HPI - General Adult General Chief complaint: Vaginal Bleeding Stated complaint: Abdominal Pain Time Seen by Provider: 01/15/25 21:41 History of Present Illness HPI narrative: Arrives with complaints of increased vaginal bleeding and large clots. States she was 5 weeks gestation and bleeding started on Monday. Seen at another ED and told to return for increased bleeding and clots, so she presents here. Alert and oriented, tearful in triage, ABCs intact. 29-year-old young woman presenting to the emergency department with increased vaginal bleeding formation of some larger clots. A little abdominal cramping. Seen 3 days ago following some vaginal bleeding apparently in the setting of suspected 5 weeks gestation. Has not received more information. Does have a few miscarriages. Has never completed a to term. Feeling maybe little lightheaded ?I think so?. It is more a couple of hours ago started bleeding more heavily and this is concerning Unknown whether not there was anything intrauterine. HCG though she says was measured at 1500 and supposedly about 5 weeks gestation. Related Data Allergies Allergy/AdvReac Type Severity Reaction Status Date / Time No Known Drug Allergies Allergy Verified 01/15/25 21:21 Review of Systems Status of ROS: Reports: 6 or more systems reviewed and unremarkable except as noted in History and below [facility] Medical History Chest pain ?R07.9 - Chest pain, unspecified (ICD-10) Acute pelvic inflammatory disease ?N73.0 - Acute parametritis and pelvic cellulitis (ICD-10) Miscarriage ?O03.9 - Complete or unspecified spontaneous without complication (ICD-10) No significant past medical history Surgical History H/O plastic surgery ?Z98.890 - Other specified postprocedural states (ICD-10) Social History What is your current living situation?: I presently have a place to live Problems where you live: no known problems In the past 12 months, utilities in danger of being shut off: no In past 12 months, lack of transportation kept you from medical appts, meetings, work, or getting things needed for daily living: no In the past 12 mos, have been you worried that your food would run out before you had money to buy more?: never true In the past 12 mos, the food you bought just didn't last and you didn't have money to buy more?: never true Smoking Status: Never smoker Do you use any of these nicotine containing products: None Second hand tobacco smoke exposure: No How often do you have a drink containing alcohol: never How often do you have six or more drinks on one occasion: Never AUDIT-C Alcohol total score: 0 Non-prescribed substance use: denies use How often does anyone, including family, friends and others, physically hurt you: never How often does anyone, including family, friends and others, insult or talk down to you: never How often does anyone, including family, friends and others, threaten you with harm: never How often does anyone, including family, friends and others, scream or curse at you: never service: No Exam Narrative: Exam Narrative: She is upset. Little emotional. Skin is warm and dry. Mucous membranes are well-perfused. Abdomen is soft and little tender in the suprapubic area. Lungs are clear. Heart in elevated rate and regular rhythm. Const: Vital Signs, click to edit/add: Vital Signs - 24 hr 01/15/25 21:24 Temperature 98.8 F Pulse Rate [Pulse Oximeter] 100 Respiratory Rate 20 Blood Pressure [Ri ght Upper Arm] 146/92 H Pulse Oximetry 97 Oxygen Delivery Me thod Room Air Documenting provider has reviewed patient's vital signs: yes Course Vital Signs Vital signs: Initial Vital Signs Temperature 98.8 F 01/15/25 21:24 Temperature Source Temporal Artery Scan 01/15/25 21:24 Pulse Rate 100 01/15/25 21:24 Respiratory Rate 20 01/15/25 21:24 Blood Pressure 146/92 H 01/15/25 21:24 Blood Pressure Mean 110 H 01/15/25 21:24 Pulse Oximetry 97 01/15/25 21:24 Oxygen Delivery Method Room Air 01/15/25 21:24 Vital Signs Temperature 98.8 F 01/15/25 21:24 Pulse Rate 100 01/15/25 21:24 Respiratory Rate 20 01/15/25 21:24 Blood Pressure 146/92 H 01/15/25 21:24 Pulse Oximetry 97 01/15/25 21:24 Oxygen Delivery Method Room Air 01/15/25 21:24 Temperature 98.8 F 01/15/25 21:24 Pulse Rate 100 01/15/25 21:24 Respiratory Rate 20 01/15/25 21:24 Blood Pressure 146/92 H 01/15/25 21:24 Pulse Oximetry 97 01/15/25 21:24 Oxygen Delivery Method Room Air 01/15/25 21:24 Medications Administered Medications: Discontinued Medications Generic Name Dose Route Start Last Admin Trade Name Nabil PRN Reason Stop Dose Admin Sodium Chloride 1,000 mls @ 1,000 mls/hr 01/15/25 21:48 01/15/25 23:43 0.9 % Sodium Chloride 1000 Ml IV 01/15/25 22:47 Infused .Q1H ONE Infusion Ketorolac Tromethamine 30 mg 01/15/25 23:35 01/15/25 23:43 Ketorolac 30 Mg/Ml Inj IVP 01/15/25 23:36 30 mg ONCE ONE Administration Medical Decision Making MDM Narrative Medical decision making narrative: Appears to be having continued miscarriage. Will monitor here to be sure that bleeding isn't excessive otherwise and needs some interventions. Will confirm blood type, check hemoglobin, quantitative hCG and ultrasound. Hemoglobin looks good. HCG quantitative is not consistent with anticipated weeks of . Has dropped markedly. Discussed findings with clerical dentist assistant. Sounds like has or is completing this miscarriage. Discussed findings with Fannie and her partner. Called to OBGYN on-call was already aware of this case. INDICATION: First trimester , bleeding. TECHNIQUE: Ultrasound OB pelvis transvaginal. Real-time gamboa-scale imaging of the pelvis was performed. COMPARISON: None. FINDINGS: Intrauterine gestation: Ill-defined intrauterine debris, but no definite gestational sac or pole identified. Trace cervical fluid. Ovaries and adnexa: Unremarkable. No findings suggestive of ectopic . Suspicious pelvic fluid collections: None. IMPRESSION: No definite intrauterine identified. Ill-defined intrauterine debris could represent failed in progress. Follow-up ultrasound in 7-10 days could be considered for more definitive evaluation. Dictated by Harjeet Newton MD @ 01/15/2025 11:26:18 PM On reassessment thinks her bleeding has lightened. See patient discharge plan for further discussion Can take ibuprofen or acetaminophen for discomfort. Focus on hydration. Be seen/return for increased bleeding such that you are soaking through 1 overnight pad an hour for 2 consecutive hours, marked increase in persistent pain, fever. [facility] for further cares as planned. Lab Data Lab results reviewed: Yes I reviewed the patient's lab results Labs: Lab Results 01/15/25 Range/Units 22:05 WBC 10.91 (4.50-11.00) K/uL RBC 4.13 (4.00-5.20) m/uL Hgb 12.2 (12.0-16.0) gm/dL Hct 37.1 (33.0-51.0) % MCV 90 (80-100) fL MCH 30 (26-34) pg MCHC 33 (32-36) gm/dL RDW Coeff of Tamia 12.5 (11.5-15.5) % Plt Count 334 (140-440) K/uL Neut % (Auto) 61.2 (42.0-72.0) % Lymph % (Auto) 31.0 (20-44) % Sullivan % (Auto) 5.9 (0.0-11.0) % Eos % (Auto) 1.5 (0.0-7.0) % Baso % (Auto) 0.2 (0.0-3.0) % Neut # (Auto) 6.69 (1.7-7.0) K/uL Lymph # (Auto) 3.38 H (0.90-2.90) K/uL Sullivan # (Auto) 0.60 (0.00-0.90) K/UL Eos # (Auto) 0.16 (0.00-0.50) K/uL Baso # (Auto) 0.02 (0.00-0.30) K/uL Abs Immat Gran (auto) 0.02 (0.00-0.30) K/uL Imm/Tot Granulo (auto) 0.2 % HCG, Quant 133.89 mIU/mL Blood Type O Positive Discharge Plan Discharge Clinical Impression: Miscarriage Patient Disposition: Home w/ Parent or Adult Condition: Improved Additional Instructions: Can take ibuprofen or acetaminophen for discomfort. Focus on hydration. Be seen/return for increased bleeding such that you are soaking through 1 overnight pad an hour for 2 consecutive hours, marked increase in persistent pain, fever. [facility] for further cares as planned. Activity Level: No Restrictions Discharge Diet: Regular Follow Up/Referrals: Celso Ibanez MD [Primary Care Provider, Family Practice] Stand Alone Forms: [employer] Info Instructions
--- NOTE | 2025-01-15 22:06 | CRLHL7_ITS ---
For Patients: As a result of the Century Cures Act, medical imaging exams and procedure reports are released immediately into your electronic medical record. You may view this report before your referring provider. If you have questions, please contact your health care provider. INDICATION: First trimester , bleeding. TECHNIQUE: Ultrasound OB pelvis transvaginal. Real-time gamboa-scale imaging of the pelvis was performed. COMPARISON: None. FINDINGS: Intrauterine gestation: Ill-defined intrauterine debris, but no definite gestational sac or pole identified. Trace cervical fluid. Ovaries and adnexa: Unremarkable. No findings suggestive of ectopic . Suspicious pelvic fluid collections: None. IMPRESSION: No definite intrauterine identified. Ill-defined intrauterine debris could represent failed in progress. Follow-up ultrasound in 7-10 days could be considered for more definitive evaluation. Dictated by Harjeet Newton MD @ 01/15/2025 11:26:18 PM (Electronically Signed)
[2025-01-15 22:12] LABS: Basophils Absolute Auto 0.02 K/uL (0.00-0.30); Basophils Percent Auto 0.2 % (0.0-3.0); Eosinophils Absolute Auto 0.16 K/uL (0.00-0.50); Eosinophils Percent Auto 1.5 % (0.0-7.0); Hematocrit 37.1 % (33.0-51.0); Hemoglobin* 12.2 gm/dL (12.0-16.0); Immature Granulocytes Abs Auto 0.02 K/uL (0.00-0.30); Immature Granulocytes Pct Auto 0.2 %; Lymphocytes Absolute Auto 3.38 K/uL (0.90-2.90); Mean Corpuscular HGB Conc 33 gm/dL (32-36); Mean Corpuscular Hemoglobin 30 pg (26-34); Mean Corpuscular Volume 90 fL (80-100); Monocytes Percent Auto 5.9 % (0.0-11.0); Neutrophils Absolute Auto 6.69 K/uL (1.7-7.0); Neutrophils Percent Auto 61.2 % (42.0-72.0); Platelet Count* 334 K/uL (140-440); RDW Coefficient of Variation % 12.5 % (11.5-15.5); Red Blood Count 4.13 m/uL (4.00-5.20); White Blood Count* 10.91 K/uL (4.50-11.00)
[2025-01-15] MEDS: 0.9 % SODIUM CHLORIDE 1000 ml 1,000 ML IV (22:12)
[2025-01-15 22:15] LABS: Slide Review Reflex No
[2025-01-15 22:55] LABS: HCG Quantitative* 133.89 mIU/mL
[2025-01-15] MEDS: KETOROLAC 30 MG/ML inj IVP (23:43)
== END 2025-01-15 23:46 | disposition home or self-care (01) ==
PROVIDERS: Emergency Provider Family Medicine; PCP Family Medicine
DX: O03.9 Complete or unspecified spontaneous abortion without complication (principal); R42 Dizziness and giddiness
CPT/HCPCS: 36415; 76817; 84702; 85025; 86900; 86901; 96361; 96374; 99284; J1885; J7030

== ENCOUNTER 2025-01-22 12:25 | Outpatient (CLI) | payer OTHER, SELFPAY | END 2025-01-22 12:26 | disposition home or self-care (01) | PROVIDERS: PCP Family Medicine; Visit Provider Registered Nurse | DX: N97.9 Female infertility, unspecified (principal); N96 Recurrent pregnancy loss | CPT/HCPCS: 84146; 84439; 84443; 84702; 85520; 85525; 85598; 85610; 85613; 85670; 85730; 86146; 86147; 88262 ==

== ENCOUNTER 2025-02-07 10:50 | Outpatient (CLI) | payer OTHER, SELFPAY ==
--- OUTSIDE RECORDS SUMMARY | 2025-01-12 15:06 | XMS_ITS | Encounter Summary ---
Author Organization [place] Address [address] [place] [id number] Care Team Providers Care Director Of Professional Services Name Role Phone [facility] Primary [facility] Provider Kim Diaz MD Unavailable [phone] Reason for Visit * Reason Comments Vaginal Bleeding - Encounter Details Date Type Department Care Team (Late st Contact Info) Description 01/12/2025 3:06 PM CDT - 01/12/2025 5:11 PM CDT Emergency [facility] Emergency Dept [address] [place] [id number] [phone] Rohit Marie MD [facility] [address] [place] [address] [place] [id number] Vaginal bleeding in , first trimester; Subchorionic hematoma in first trimester, single or unspecified fetus; Abnormality of uterus during in first trimester Discharge Disposition: Home or Self Care Social History Tobacco Use Types Packs/Day Years Used Date Smoking Tobacco: Never Alcohol Use Standard Drinks/Week Comments No 0 (1 standard drink = 0.6 oz pur e alcohol) Comments Yes Sex and Gender Information Value Date Recorded Sex Assigned at Not on file 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 Gender Identity Not on file Sexual Orientation Not on file documented as of this encounter Last Filed Vital Signs Vital Sign Reading Time Taken Comments Blood Pressure 111/72 01/12/2025 5:05 PM CDT Pulse 93 01/12/2025 5:05 PM CDT Temperature 36.7 C (98 F) 01/12/2025 2:21 PM CDT Respiratory Rate 18 01/12/2025 5:05 PM CDT Oxygen Saturation 99% 01/12/2025 5:05 PM CDT Inhaled Oxygen Concentration - - Weight 76.7 kg (169 lb 1.5 oz) 01/12/2025 2:21 P M CDT Height 160 cm (5' 3) 01/12/2025 2:21 PM CDT Body Mass Index 29.95 01/12/2025 2:21 PM CDT documented in this encounter Discharge Instructions * Discharge Instructions* Rohit Marie MD - 01/12/2025 5:03 PM CDT Please monitor symptoms closely. I would recommend follow-up with COUNSELING SPECIALIST provider in 2 days for recheck and repeat blood test. Return to the ER if you develop worsening bleeding, pain, dizziness, fainting episodes or any other concerns. Discharge Instructions Vaginal Bleeding in Bleeding in early can be a sign of a miscarriage or an abnormal , but often is innocent and the will continue normally. We may do blood tests and ultrasound to try to determine what is causing the bleeding, but sometimes we are unable to tell. If this is the case, it will often require more time, more blood tests, and another ultrasound. Generally, every Emergency Department visit should have a follow-up clinic visit with either a primary or a specialty clinic/provider. Please follow-up as instructed by your emergency provider today. Return to the Emergency Department if: You have severe abdominal (belly) or pelvic pain. You faint, or feel lightheaded or dizzy. Your bleeding gets much worse. You pass any tissue--solid material that does not look like a blood clot. If you pass tissue, save it (even if you have to pull it out of the toilet) and put it in a plastic bag or jar and bring it in. You have a fever of 100.5??F or higher. If no could be seen: It may be that everything is normal and it is just too early to see the . It is also possible that you could have an ectopic , which is a in an abnormal location, such as in the tube (???tubal ?? ). We don???t see evidence that this is likely today but we cannot exclude it with certainty until a can be seen in the uterus (womb) and an ectopic can cause severe internal bleeding or so follow-up is very important. You should not be alone, in case you suddenly become very sick. You should not have sex or put anything in your vagina. If a was seen in your uterus: If a heartbeat could be seen, the chance of miscarriage is lower but because you had bleeding the chance of a miscarriage still exists. You should not have sex or put anything in your vagina. Follow-up as directed with your COUNSELING SPECIALIST provider. Facts about miscarriage: We hope you do not have a miscarriage, but if you do, here are important things to know: Early miscarriage is very common, and having one miscarriage does not mean you will have problems with another . Nothing you did caused it. Taking medicine, drinking alcohol, having sex, exercising, or falling down will not cause a miscarriage. If you were given a prescription for medicine here today, be sure to read all of the information (including the package insert) that comes with your prescription. This will include important information about the medicine, its side effects, and any warnings that you need to know about. The pharmacist who fills the prescription can provide more information and answer questions you may have about the medicine. If you have questions or concerns that the pharmacist cannot address, please call or return to the Emergency Department. Remember that you can always come back to the Emergency Department if you are not able to see your regular provider in the amount of time listed above, if you get any new symptoms, or if there is anything that worries you. documented in this encounter Medications at Time of Discharge Medication Sig Dispense Quantity Refills Last Filled Start D ate End Date Ferrous Sulfate (IRON SUPPLEMENT PO) documented as of this encounter ED Notes * Rohit Marie MD - 01/12/2025 3:06 PM CDT Emergency Department Note History of Present Illness Chief Complaint Vaginal Bleeding - HPI Fannie East is a 29 year old at 7w5d EGA who presents with abdominal pain. Around 1300 today the patient developed light abdominal cramping along with vaginal bleeding. She noticed passing one small clot around 1300 but nothing since. This is her third , she has had 2 miscarriages in the past. She denies any nausea, vomiting. Denies any other concerns at this time. Independent Historian None Review of External Notes I reviewed a note from 10/31/2024 when the patient did not show up to their endocrinology appointment. 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 Skin lesion excision on neck Physical Exam Patient Vitals for the past 24 hrs: BP Temp Temp src Pulse Resp SpO2 Height Weight 01/12/25 1705 111/72 -- -- 93 18 99 % -- -- 01/12/25 1421 111/74 98 ??F (36.7 ??C) Temporal 93 18 100 % 1.6 m (5' 3) 76.7 kg (169 lb 1.5 oz) Physical Exam General: Well-nourished Speaking in full sentences Eyes: Conjunctiva without injection or scleral icterus ENT: Moist mucous membranes Nares patent Pinnae normal Neck: Full ROM No stiffness appreciated Resp: Lungs CTAB No crackles, wheezing or audible rubs Good air movement CV: Normal rate, regular rhythm S1 and S2 present No murmur, gallop or rub GI: BS present Abdomen soft without distention Non-tender to light and deep palpation No guarding or rebound tenderness Skin: Warm, dry, well perfused No rashes or open wounds on exposed skin MSK: Moves all extremities No focal deformities or swelling Neuro: Alert Answers questions appropriately Moves all extremities equally Gait stable Psych: Normal affect, normal mood Diagnostics Lab Results Labs Ordered and Resulted from Time of ED Arrival to Time of ED Departure CBC WITH PLATELETS AND DIFFERENTIAL - Abnormal Result Value WBC Count 12.1 (*) RBC Count 4.27 Hemoglobin 12.6 Hematocrit 37.4 MCV 88 MCH 29.5 MCHC 33.7 RDW 12.6 Platelet Count 338 % Neutrophils 67 % Lymphocytes 27 % Monocytes 5 % Eosinophils 1 % Basophils 0 % Immature Granulocytes 0 NRBCs per 100 WBC 0 Absolute Neutrophils 8.1 Absolute Lymphocytes 3.2 Absolute Monocytes 0.6 Absolute Eosinophils 0.1 Absolute Basophils 0.0 Absolute Immature Granulocytes 0.0 Absolute NRBCs 0.0 HCG QUANTITATIVE - Abnormal hCG Quantitative 1,587 (*) BASIC METABOLIC PANEL - Normal Sodium 139 Potassium 3.7 Chloride 104 Carbon Dioxide (CO2) 22 Anion Gap 13 Urea Nitrogen 9.3 Creatinine 0.62 GFR Estimate >90 Calcium 9.4 Glucose 92 TYPE AND SCREEN, ADULT ABO/RH(D) O POS Antibody Screen Negative SPECIMEN EXPIRATION DATE [id number] ABO/RH TYPE AND SCREEN Imaging US OB 1st Trimester W Transvaginal W Doppler Final Result IMPRESSION: 1. Single intrauterine gestation at 5 weeks 0 days, recommend commencing continued follow-up with beta hCG and ultrasound as clinically indicated. 2. Small subchorionic hematoma. 3. 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 EKG None Independent Interpretation None ED Course Medications Administered Medications - No data to display Procedures Procedures Discussion of Management None ED Course ED Course as of 01/12/25 2245 Sun January 12, 2025 1513 I initially assessed the patient and obtained the above history and physical exam. 1702 I rechecked the patient Additional Documentation None Medical Decision Making / Diagnosis [facility] Diagnoses: None MIPS None MDM Fannie East is a 29 year old presenting to the ER for evaluation of vaginal bleeding in thecontext of . VS on presentation are within normal limits and remained stable during ED course. Workup included laboratory studies as well as advanced imaging. At this time, symptoms are mostconsistent with threatened miscarriage in the setting of early . Quantitative hCG did return at 1587. CBC reveals normal hemoglobin. WBC count mildly elevated, likely secondary to acute stress demargination. Metabolic function unremarkable. Patient is Rh+ and thus does not require RhoGAM. Pelvic ultrasound demonstrates gestational sac correlating with approximately 5 weeks 0 days gestational age, but no heartbeat is noted. Patient was informed of the associated subchorionic hematoma as well as a congenital uterine abnormality. I recommended she discuss this further with her COUNSELING SPECIALIST provider as it may be contributing factor to her 2 previous miscarriages. At this time, there isno evidence of ovarian or adnexal lesion that would raise suspicion for ectopic . Results and clinical impression discussed with patient and significant other. We discussed the differential diagnosis including early , miscarriage as well as ectopic . I have stressed the importance of follow-up with COUNSELING SPECIALIST provider in 2 days for recheck. We discussed pelvic rest. She is to return to the ER should she develop worsening pain, bleeding, dizziness, fainting episodes or anyother concerns. Questions answered prior to discharge. Disposition The patient was discharged. Diagnosis ICD-10-CM 1. Vaginal bleeding in , first trimester O20.9 2. Subchorionic hematoma in first trimester, single or unspecified fetus O41.8X10 O46.8X1 3. Abnormality of uterus during in first trimester O34.591 Discharge Medications Discharge Medication List as of 01/12/2025 5:04 PM Scribe Disclosure: I, Henrry Steph, am serving as a scribe at 3:07 PM on 01/12/2025 to document services personally performed by Rohit Marie MD based on my observations and the provider's statements to me. Rohit Marie MD 01/12/25 2249 * Esme Spears, RN - 01/12/2025 2:18 PM CDT Pt arrives ambulatory with boyfriend for vaginal bleeding that began 1 hour ago. Bright red with clots and mild cramping. Is 7 weeks with no due date yet. LMP around 11/19/24. documented in this encounter Plan of Treatment Not on file documented as of this encounter Procedures Procedure Name Priority Date/Time Associated Diagnosis Comments US OB 1ST TRIMESTER W TRANSVAGINAL W DOPPLER STAT 01/12/2025 4:09 PM CDT EXTRA TUBE STAT 01/12/2025 2:48 PM CDT EXTRA GREEN TOP (LITHIUM HEPARIN) TUBE STAT 01/12/2025 2:48 PM CDT EXTRA RED TOP TUBE STAT 01/12/2025 2: 48 PM CDT EXTRA BLUE TOP TUBE STAT 01/12/2025 2 :48 PM CDT CBC WITH PLATELETS AND DIFFERENTIAL STAT 01/12/2025 2:48 PM CDT TYPE AND SCREEN, ADULT STAT 01/12/2025 2:48 PM CDT CBC WITH PLATELETS & DIFFERENTIAL STAT 01/12/2025 2:48 PM CDT HCG QUANTITATIVE STAT 01/12/2025 2:48 PM CDT ABO/RH TYPE AND SCREEN STAT 01/12/2025 2:48 PM CDT BASIC METABOLIC PANEL STAT 01/12/2025 2:48 PM CDT documented in this encounter Results * US OB 1st Trimester W Transvaginal W Doppler (01/12/2025 4:09 PM CDT) Anatomical Region Laterality Modality Abdomen/Pelvis Ultrasound 01/12/2025 4:09 PM CDT Impressions 01/12/2025 4:25 PM CDT IMPRESSION: 1. Single intrauterine gestation at 5 weeks 0 days, recommend commencing continued follow-up with beta hCG and ultrasound as clinically indicated. 2. Small subchorionic hematoma. 3. 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 Narrative 01/12/2025 4:25 PM CDT EXAM: US OB 1ST TRIMESTER W TRANSVAGINAL W DOPPLER LOCATION: [facility] DATE: 01/12/2025 INDICATION: vag bleeding w pain COMPARISON: None. TECHNIQUE: Transabdominal scans were performed. Endovaginal ultrasound was performed to better visualize the embryo. FINDINGS: UTERUS: The uterus has a slightly abnormal appearance, possibly representing an arcuate or septate uterus. MSD: Measures 353 cm, equals 5 weeks 0 days. RATE OF CARDIAC ACTIVITY: Too early to require AMNIOTIC FLUID: Normal. PLACENTA: Not yet formed. Small sub-chorionic hemorrhage. RIGHT OVARY: Normal. LEFT OVARY: Normal. Small amount of free fluid. Procedure Note Medhat Maqruez MD - 01/12/2025 EXAM: US OB 1ST TRIMESTER W TRANSVAGINAL W DOPPLER LOCATION: [facility] DATE: 01/12/2025 INDICATION: vag bleeding w pain COMPARISON: None. TECHNIQUE: Transabdominal scans were performed. Endovaginal ultrasound wasperformed to better visualize the embryo. FINDINGS: UTERUS: The uterus has a slightly abnormal appearance, possiblyrepresenting an arcuate or septate uterus. MSD: Measures 353 cm, equals 5 weeks 0 days. RATE OF CARDIAC ACTIVITY: Too early to require AMNIOTIC FLUID: Normal. PLACENTA: Not yet formed. Small sub-chorionic hemorrhage. RIGHT OVARY: Normal. LEFT OVARY: Normal. Small amount of free fluid. IMPRESSION: 1. Single intrauterine gestation at 5 weeks 0 days, recommend commencingcontinued follow-up with beta hCG and ultrasound as clinicallyindicated. 2. Small subchorionic hematoma. 3. Congenital uterine abnormality, may reflect arcuate versus septateuterus. us Mario Guthrie MD [facility] ORDERABLES Final Result * Basic metabolic panel (BMP) (01/12/2025 2:48 PM CDT) Sodium 139 135 - 145 mmol/L 01/12/2025 3:42 PM CDT [facility] Potassium 3.7 3.4 - 5.3 mmol/L 01/12/2025 3:42 PM CDT [facility] Chloride 104 98 - 107 mmol/L 01/12/2025 3:42 PM CDT [facility] Carbon Dioxide (CO2) 22 22 - 29 mmol/L 01/12/2025 3:42 PM CDT [facility] Anion Gap 13 7 - 15 mmol/L 01/12/2025 3:42 PM CDT [facility] Urea Nitrogen 9.3 6.0 - 20.0 mg/dL 01/12/2025 3:42 PM CDT [facility] Creatinine 0.62 0.51 - 0.95 mg/dL 01/12/2025 3:42 PM CDT [facility] GFR Estimate >90 >60 mL/min/1.7 3m2 01/12/2025 3:42 PM CDT [facility] Comment:eGFR calculated usin 2020 CKD-EPI equation. Calcium 9.4 8.8 - 10.4 mg/dL 01/12/2025 3:42 PM CDT [facility] Glucose 92 70 - 99 mg/dL 01/12/2025 3:42 PM CDT [facility] Blood STRUCTURE OF LEFT UPPER LIMB / Unknown Venipuncture / Unknown 01/12/2025 2:48 PM CDT 01/12/2025 2:57 PM CDT Rohit Marie MD LAB - BLOOD ORDERABLES Fin al Result [facility] [address] Lab (1st floor, no room number) [place] [address] * (ABNORMAL) HCG QUANTitative (blood) (01/12/2025 2:48 PM CDT) hCG Quantitative 1,587(H) <5 mIU/mL 01/13/20 3:49 PM CDT [facility] Comment: Adult: 0-5 mIU/mL for healthy non- person Neonates: Should be within normal ranges by 2 days after Blood STRUCTURE OF LEFT UPPER LIMB / Unknown Venipuncture / Unknown 01/12/2025 2:48 PM CDT 01/12/2025 2:57 PM CDT Rohit Marie MD LAB - BLOOD ORDERABLES Fin al Result [facility] [address] Lab (1st floor, no room number) [place] [address] * Extra Green Top ([place] Heparin) Tube (01/12/2025 2:48 PM CDT) Hold Specimen JIC 01/12/2025 4:04 PM CDT [facility] Blood STRUCTURE OF LEFT UPPER LIMB / Unknown Venipuncture / Unknown 01/12/2025 2:48 PM CDT 01/12/2025 2:57 PM CDT Rohit Marie MD LAB - BLOOD ORDERABLES Fin al Result [facility] [address] Lab (1st floor, no room number) [place] [address] * Extra Red Top Tube (01/12/2025 2:48 PM CDT) Hold Specimen [facility] 01/12/2025 4:04 PM CDT [facility] Blood STRUCTURE OF LEFT UPPER LIMB / Unknown Venipuncture / Unknown 01/12/2025 2:48 PM CDT 01/12/2025 2:57 PM CDT Rohit Marie MD LAB - BLOOD ORDERABLES Fin al Result [facility] [address] Lab (1st floor, no room number) [place] [phone] [place] [address] * Extra Blue Top Tube (01/12/2025 2:48 PM CDT) Hold Specimen [facility] 01/12/2025 4:04 PM CDT [facility] Blood STRUCTURE OF LEFT UPPER LIMB / Unknown Venipuncture / Unknown 01/12/2025 2:48 PM CDT 01/12/2025 2:57 PM CDT Rohit Marie MD LAB - BLOOD ORDERABLES Fin al Result Performing Organization Address City/[facility]/ZIP Co de Phone Number [facility] [address] Lab (1st floor, no room number) [address] * Adult Type and Screen (01/12/2025 2:48 PM CDT) ABO/RH(D) O POS 01/12/2025 2:25 PM CDT [facility] Antibody Screen Negative Negative 01/12/2025 2:25 PM CDT [facility] SPECIMEN EXPIRATION DATE [id number] 01/12/2025 2:25 PM CDT [facility] Blood STRUCTURE OF LEFT UPPER LIMB / Unknown Venipuncture / Unknown 01/12/2025 2:48 PM CDT 01/12/2025 2:57 PM CDT Mario Guthrie MD LAB - BLOOD BANK TEST ORDER Michelle gerardo Result [facility] [place] [address], [facility] * (ABNORMAL) CBC with platelets and differential (01/12/2025 2:48 PM CDT) WBC Count 12.1(H) 4.0 - 11.0 10e3/uL 01/12/2025 3:04 PM CDT [facility] RBC Count 4.27 3.80 - 5.20 10e6/uL 01/12/2025 3:04 PM CDT [facility] Hemoglobin 12.6 11.7 - 15.7 g/dL 01/12/2025 3:04 PM CDT [facility] Hematocrit 37.4 35.0 - 47.0 % 01/12/2025 3:04 PM CDT [facility] MCV 88 78 - 100 fL 01/12/2025 3:04 PM CDT [facility] MCH 29.5 26.5 - 33.0 pg 01/12/2025 3:04 PM CDT [facility] MCHC 33.7 31.5 - 36.5 g/dL 01/12/2025 3:04 PM CDT [facility] RDW 12.6 10.0 - 15.0 % 01/12/2025 3:04 PM CDT [facility] Platelet Count 338 150 - 450 10e3/uL 01/12/2025 3:04 PM CDT [facility] % Neutrophils 67 % 01/12/2025 3:04 PM CDT [facility] % Lymphocytes 27 % 01/12/2025 3:04 PM CDT [facility] % Monocytes 5 % 01/12/2025 3:04 PM CDT [facility] % Eosinophils 1 % 01/12/2025 3:04 PM CDT [facility] % Basophils 0 % 01/12/2025 3:04 PM CDT [facility] % Immature Granulocytes 0 % 01/12/2025 3:04 PM CDT [facility] NRBCs per 100 WBC 0 <1 /100 025 3:04 PM CDT [facility] Absolute Neutrophils 8.1 1.6 - 8.3 10e3/uL 01/12/2025 3:04 PM CDT [facility] Absolute Lymphocytes 3.2 0.8 - 5.3 10e3/uL 01/12/2025 3:04 PM CDT [facility] Absolute Monocytes 0.6 0.0 - 1.3 10e3/uL 01/12/2025 3:04 PM CDT [facility] Absolute Eosinophils 0.1 0.0 - 0.7 10e3/uL 01/12/2025 3:04 PM CDT [facility] Absolute Basophils 0.0 0.0 - 0.2 10e3/uL 01/12/2025 3:04 PM CDT [facility] Absolute Immature Granulocytes 0.0 <=0.4 10e3/uL 01/12/2025 3:04 PM CDT [facility] Absolute NRBCs 0.0 10e3/uL 01/12/2025 3:04 PM CDT [facility] Blood STRUCTURE OF LEFT UPPER LIMB / Unknown Venipuncture / Unknown 01/12/2025 2:48 PM CDT 01/12/2025 2:57 PM CDT us Mario Guthrie MD LAB - BLOOD ORDERABLES Final Res ult [facility] [address] Lab (1st floor, no room number) [place] [address] documented in this encounter Visit Diagnoses Diagnosis Vaginal bleeding in , first trimester Subchorionic hematoma in first trimester, single or unspecified fetus Abnormality of uterus during in first trimester documented in this encounter Care Teams Director Of Professional Services Relationship Specialty Start Date End Date [facility], [address] [address] PCP - General 12/10/15 Kim Diaz MD [address] [place] [address] Hospitalist Endocrinology, Diabetes, and Metabolism 03/14/24 documented as of this encounter
--- NOTE | 2025-02-07 10:45 | CRLHL7_ITS ---
For Patients: As a result of the Century Cures Act, medical imaging exams and procedure reports are released immediately into your electronic medical record. You may view this report before your referring provider. If you have questions, please contact your health care provider. 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 Transvaginal imaging performed to better visualize the endometrial stripe and ovaries. FINDINGS: Sonographic images demonstrate a normal size and smooth outer contour of the uterus. Uterus measures 7.8 cm in length by 3.5 cm in AP diameter by 4.5 cm in transverse dimension. The myometrium has a normal uniform echotexture. The endometrial lining appears normal and measures 5 mm in composite thickness. The right ovary measures 3.2 x 1.6 x 2.3 cm in size and the left ovary measures 4.4 x 3.6 x 3.6 cm. The ovaries demonstrate normal arterial and venous blood flow on color Doppler analysis. Complex left ovarian cyst is present which measures 2.4 x 3.6 x 3.2 cm. Internal reticular echoes are noted. No internal vascularity. IMPRESSION: Probable hemorrhagic left ovarian cyst measuring 3.6 cm. Follow-up in 6 months recommended. Normal uterine anatomy. Endometrial thickness 5 millimeters. No endometrial fluid. Dictated by Harjeet Taylor MD @ 02/07/2025 11:57:18 AM (Electronically Signed)
--- OUTSIDE RECORDS SUMMARY | 2025-02-08 01:00 | XMS_ITS | Encounter Summary ---
Author Organization [facility] Address [address] [place] [address] Care Team Providers Care Tower Loader Operator Name Role Phone [facility] Primary Care Provider iKm Diaz MD Unavailable [phone] Encounter Details Date Type Department Care Team (Latest Contact Info) Description 01/12/2025 Travel Social History Tobacco Use Types Packs/Day Years Used Date Smoking Tobacco: Never Alcohol Use Standard Drinks/Week Comments No 0 (1 standard drink = 0.6 oz pur e alcohol) Comments Yes Sex and Gender Information Value Date Recorded Sex Assigned at Not on file 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
--- OUTSIDE RECORDS SUMMARY | 2025-02-08 01:00 | XMS_ITS | Clinical Summary ---
Author Organization [facility] Address [address] [place] [address] Care Team Providers Care Package Lift Operator Name Role Phone Janette, [facility] Primary Care Provider Kim Diaz MD Unavailable [phone] Allergies No known active allergies Medications Ferrous Sulfate (IRON SUPPLEMENT PO) Active Encounters Date Type Department Care Team Description 01/12/2025 3:06 PM CDT - 01/12/2025 5:11 PM CDT Emergency [facility] Emergency Dept [address] [place] [id number] Rohit Marie MD Vaginal bleeding in , [...] = 0.6 oz pur e alcohol) Comments Unknown Sex and Gender Information Value Date Recorded Sex Assigned at Not on file Legal Sex Female 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 Mario Guthrie MD [facility] US ORDERABLES Final Result * Extra Green Top ([place] Heparin) Tube (01/12/2025 2:48 PM CDT) [facility] Specimen [facility] 01/12/2025 4:04 PM CDT LABORATORY Blood STRUCTURE OF LEFT UPPER LIMB / Unknown Venipuncture / Unknown 01/12/2025 2:48 PM CDT 01/12/2025 2:57 PM CDT Rohit Marie MD LAB - BLOOD ORDERABLES Fin al Result LABORATORY [facility] [address] Lab (1st floor, no room number) [place] [address] * Extra Red Top Tube (01/12/2025 2:48 PM CDT) Hold Specimen [facility] 01/12/2025 4:04 PM CDT RH LABORATORY Blood STRUCTURE OF LEFT UPPER LIMB / Unknown Venipuncture / Unknown 01/12/2025 2:48 PM CDT 01/12/2025 2:57 PM CDT Rohit Marie MD LAB - BLOOD ORDERABLES Fin al Result LABORATORY [facility] Lab [address] Lab (1st floor, no room number) [place] [address] * Extra Blue Top Tube (01/12/2025 2:48 PM CDT) Hold Specimen [facility] 01/12/2025 4:04 PM CDT RH LABORATORY Blood STRUCTURE OF LEFT UPPER LIMB / Unknown Venipuncture / Unknown 01/12/2025 2:48 PM CDT 01/12/2025 2:57 PM CDT Rohit Marie MD LAB - BLOOD ORDERABLES Fin al Result [facility] Lab [address] Lab (1st floor, no room number) [place] [address] * (ABNORMAL) CBC with platelets and [...] LAB - BLOOD ORDERABLES Final Res ult [facility] Lab [address] Lab (1st floor, no room number) [place] [address] * Adult Type and Screen (01/12/2025 2:48 PM CDT) ABO/RH(D) O POS 01/12/2025 2:25 PM CDT RH BLOOD BANK Antibody Screen Negative Negative 01/12/2025 2:25 PM CDT RH BLOOD BANK SPECIMEN EXPIRATION DATE [id number] 01/12/2025 2:25 PM CDT RH BLOOD BANK Blood STRUCTURE OF LEFT UPPER LIMB / Unknown Venipuncture / Unknown 01/12/2025 2:48 PM CDT 01/12/2025 2:57 PM CDT Mario Guthrie MD LAB - BLOOD BANK TEST ORDER Michelle l Result Performing Organization Address [facility]/ZIP Co de Phone Number BLOOD BANK [address] [place] [address] [place] [address] * (ABNORMAL) HCG QUANTitative (blood) (01/12/2025 2:48 [...] LAB - BLOOD ORDERABLES Fin al Result [facility] [address] Lab (1st floor, no room number) [place] [address], [facility] * Basic metabolic panel (BMP) (01/12/2025 2:48 PM CDT) [facility] Sodium 139 135 - 145 mmol/L [...] - BLOOD ORDERABLES Fin al Result LABORATORY [facility] [address] Lab (1st floor, no room number) [place] [address], [facility] * ABSTRACT HIV (12/05/2023 4:30 PM CDT) [facility] HIV 1&2 EXT Non-Reacti ve [facility] Blood 12/05/2023 4:30 PM CDT Narrative [facility] - 12/05/2023 4:30 PM CDT [facility] [place]-External Lab Results us Provider Outside LAB - HIM EXTERNAL RESULT Final Result [facility] [address] [place] [address], [facility] [phone] * Hepatitis C (HIM External Result) (12/05/2023 4:30 PM CDT) Hep C HIM See Scanned Document [facility] 12/05/2023 4:30 PM CDT us Provider Outside LAB - HIM EXTERNAL RESULT Final Result Performing Organization Address City/[facility]/ZIP Co de Phone Number [facility] [address] [place] [address], [facility] [phone] from Last 3 Months or Most Recently Relevant to Health Maintenance Insurance [employer] Care Teams Package Lift Operator Relationship Specialty Start Date End Date [facility], [address] [address] PCP - General 12/10/15 Kim Diaz MD [address] [address] Hospitalist Endocrinology, Diabetes, and Metabolism 03/14/24
== END 2025-02-07 10:51 | disposition home or self-care (01) ==
LOC: US 10:50
PROVIDERS: PCP Family Medicine; Visit Provider Registered Nurse
DX: Q51.9 Congenital malformation of uterus and cervix, unspecified (principal); N83.202 Unspecified ovarian cyst, left side; R93.89 Abnormal findings on diagnostic imaging of other specified body structures
CPT/HCPCS: 76830; 76856

== ENCOUNTER 2025-05-05 07:43 | Emergency (ER) | payer OTHER, SELFPAY ==
--- OUTSIDE RECORDS SUMMARY | 2025-05-05 07:46 | XMS_ITS | Clinical Summary ---
Author Organization [facility] [facility] Address [address] [place] [id number] Care Team Providers Care Zipper Cutter Name Role Phone None Primary Care Provider Unavailabl e Allergies Active Allergy Reactions Criticality Noted Date Comments Horse/Equine Containing Products Medications methylPREDNISol one (MEDROL DOSEPAK) 4 mg tabletIndicatio ns:Back pain, unspecified back location, unspecified back pain laterality, unspecified chronicity Take by mouth as instructed per packaging. 21 Tablet 5 Active cyclobenzaprine (FLEXERIL) 10 mg tabletIndicatio ns:Chronic left-sided low back pain with left-sided sciatica Take 0.5 Tablets (5 mg) by mouth at bedtime for 20 days. 10 Tablet 5 05/22/20 25 Active cyclobenzaprine (FLEXERIL) 5 mg tabletIndicatio ns:Bilateral low back pain without sciatica, unspecified chronicity Take 1 Tablet (5 mg) by mouth three times daily. 30 Tablet 3 04/08/20 25 Discontin ued(*Med complete/ Regimen complete/ Level of care change) cyclobenzaprine (FLEXERIL) 5 mg tabletIndicatio ns:Back pain, unspecified back location, unspecified back pain laterality, unspecified chronicity Take 1 Tablet (5 mg) by mouth every 8 hours if needed for Muscle Spasm. 20 Tablet 5 05/02/20 25 Discontin ued(*Med complete/ Regimen complete/ Level of care change) Active Problems Problem Noted Date Diagnosed Date Heartburn 10/02/2019 Adjustment disorder with mixed anxiety and depre ssed mood 01/19/2015 Resolved Problems Problem Noted Date Diagnosed Date Resolved Date Well child check 09/14/2011 05/28/2012 Encounters Date Type Department Care Team Description 05/01/2025 11:52 PM CDT - 05/02/2025 1:21 AM CDT Emergency [facility] [address] [place] [address] Talat Delgado MD Chronic left-sided low back pain with left-sided sciatica (Primary Dx) Discharge Disposition: Home Self Care 05/01/2025 Travel 04/10/2025 Travel 04/08/2025 8:03 PM CDT - 04/08/2025 9:00 PM CDT Emergency [facility] [address] [place] [address] Bryon Ramesh MD Back pain, unspecified back location, unspecified back pain laterality, unspecified chronicity (Primary Dx) Discharge Disposition: Home Self Care 04/08/2025 Travel from Last 3 Months Immunizations Immunization Administration Dates Next Due DTaP [...] Housing in the Last Year 1 03/07/2022 Interpersonal Safety Answer Date Record ed Are you being hit, kicked, p ushed or yelled at (see row info)? 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 Not on file Not on file No t on file Obstetrics History Para Term AB IAB SAB Ectopic Multiple Livin g Live Births 1 1 1 Date Outcome GA Total Labor Labor/2nd/3rd Weight Sex Type Anes PTL Mary A1 A5 Name Clin SAB Last Filed Vital Signs Vital Sign Reading Time Taken Comments Blood Pressure 114/68 05/02/2025 1:20 AM CDT Pulse 67 05/02/2025 1:20 AM CDT Temperature 37.3 C (99.1 F) 05/01/2025 11:34 PM CDT Respiratory Rate 18 05/01/2025 11:34 PM CDT Oxygen Saturation 97% 05/02/2025 1:20 AM CDT Inhaled Oxygen Concentration - - Weight 82.2 kg (181 lb 4.8 oz) 05/01/2025 11:34 PM CDT Height 160 cm (5' 3) 05/01/2025 11:34 PM CDT Body Mass Index 32.12 05/01/2025 11:34 PM CDT Plan of Treatment Health Maintenance Due Date Last Done Comments HIV for age 15-65 2012 Hepatitis C screening for age 18-79 12/12/2015 Tetanus booster 12/22/2019 12/21/2009 BMI (ht and wt on same day) for age 18+ 06/01/2022 06/01/2021, 11/25/2019, 10/02/2019, Additional history exists Depression screening for age 12+ 11/15/2022 11/15/2021, 05/05/2021, 12/10/2019, Additional history exists COVID-19 vaccine series ( season) 2025 06/25/2021, 12/24/2020, 11/25/2020 Influenza Vaccine (#1) 2025 9, 06/17/2013, 06/17/2013, Additional history exists Pap test for age 21-65 01/25/2027 01/26/2024, 2023 RSV vaccine for adults or (1 - 1-dose 75+ series) 2072 Hepatitis B series for 19+ Completed 01/07, 01/07/2003, 04/16/2002, Additional history exists HPV series for age 9-45 Completed 06/17/20 13, 12/10/2010, 11/09/2010 Pneumococcal series for age 6-49 Aged Out No longer eligible based on patient's age to complete this topic Procedures Procedure Name Priority Date/Time Associated Diagnosis Comments COMPRESS ENGINEER THIN PREP PAP SCREEN IMAGED Routine 01/26/2024 12:00 PM CDT from Last 3 Months or Most Recently Relevant to Health Maintenance Results * COMPRESS ENGINEER THIN PREP PAP SCREEN IMAGED (01/26/2024 12:00 PM CDT) Case Report Gynecologic Cytology Report Case: [id number] Authorizing Provider: Luisa Akhtar NP Collected: 01/26/2024 1200 Ordering Location: [facility] Received: 01/30/2024 0921 First Screen: Beata Garvin Specimen: COMPRESS ENGINEER ThinPrep Vial Screening, Cervical 02/06/2024 1:39 PM CDT [facility] INTERPRETATION/ RESULT NEGATIVE FOR INTRAEPITHELIAL LESION OR MALIGNANCY (NIL) (none) 02/06/2024 1:39 PM CDT [facility]AL [facility]ORY at 1339 CDT ORGANISM(S) Shift in des suggestive of bacterial vaginosis 02/06/2024 1:39 PM CDT [facility] SPECIMEN ADEQUACY Satisfactory for evaluation Endocervical component present 02/06/2024 1:39 PM CDT [facility] HPV REQUEST HPV and PAP 02/06/2024 1:39 PM CDT [facility] [facility] EN[facility] Date of LMP 01/09/2024 02/06/2024 1:39 PM CDT [facility] EN[facility] Last Pap Result First Pap/Unknown 1:39 PM CDT [facility] Abnormal Pap or [place] Bx in last 5 years No 02/06/2024 1:39 PM CDT [facility] EN[facility] Menstrual Status Regular Periods 02/06/2024 1:39 PM CDT [facility] ENTRAL LAB[facility] [place] Bx Done Today No 02/06/2024 1:39 PM CDT [facility] ENTRAL LABORATORY Additional Information 02/06/2024 1:39 PM CDT [facility] Comment: Interpreted at [facility] [employer] [facility], Central Laboratory - [address], [place] [address] Automated Review Successful 02/06/2024 1:39 PM CDT [facility] EN[facility] Comment:Specimen processed s uccessfully by automated company marker device, ThinPrep Imaging System, [employer] ANCILLARY TESTING COMPRESS ENGINEER HPV Ordered, Please see separate report 02/06/2024 1:39 PM CDT [facility] Note The pap test is a [...] and malignant lesions. 02/06/2024 1:39 PM CDT [facility] Other (Cervical) 01/26/2024 12:00 PM CDT 01/30/2024 9:21 AM CDT us Luisa Akhtar NP PATHOLOGY/CYTOLOGY Final Result [facility] [address] [place] [address], from Last 3 Months or Most Recently Relevant to Health Maintenance Insurance [facility] Care Teams Zipper Cutter Relationship Specialty Start Date End Date None . PCP - General 05/01/25
--- OUTSIDE RECORDS SUMMARY | 2025-05-05 07:46 | XMS_ITS | Clinical Summary ---
Author Organization [facility] Address [address] [place] [address] Care Team Providers Care Dispatch Supervisor Name Role Phone Janette, [facility] Primary Care Provider Kim Diaz MD Unavailable [phone] Allergies No known active allergies Medications Ferrous Sulfate (IRON SUPPLEMENT PO) Active Social History Tobacco Use Types Packs/Day Years Used Date Smoking Tobacco: Never Alcohol Use Standard Drinks/Week Comments No 0 (1 standard drink = 0.6 oz pur e alcohol) Comments Unknown Sex and Gender Information Value Date Recorded Sex Assigned at Not on file Legal Sex Female 4:24 AM DIRECTOR OF 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 Gender Identity Not on file Sexual Orientation [...] 12/22/2019 12/21/2009, 01/07/2003, 05/21/2002, Additional history exists PHQ-2 (once per calendar year) 2024 COVID-19 VACCINE (4 - 2024- season) 2025 06/25/2021, 12/24/2020, 11/25/2020 INFLUENZA VACCINE (#1) 2025 9, 06/17/2013, 11/09/2010, Additional history exists PAP 01/25/2027 [...] PM CDT) HIV 1&2 EXT Non-Reacti ve [facility] Blood 12/05/2023 4:30 PM CDT Narrative [facility] - 12/05/2023 4:30 PM CDT [facility]-External Lab Results us Provider Outside LAB - HIM EXTERNAL RESULT Final Result [facility] [address] [place] [address], [facility] [phone] * Hepatitis C (HIM External Result) (12/05/2023 4:30 PM CDT) Hep C HIM See Scanned Document [facility] 12/05/2023 4:30 PM CDT us Provider Outside LAB - HIM EXTERNAL RESULT Final Result Performing Organization Address City/State/[facility] Co de Phone Number [facility] [address] [place] [address], [facility] [phone] from Last 3 Months or Most Recently Relevant to Health Maintenance Insurance bepretty bepretty Member Subscriber Plan / Payer (Ef fective 2024-Present) Name:Fannie East Relation to Subscriber:Self Name:Fannie East Payer ID:[id number] (NAIC) Type:PPO Address: [facility] [address] [place] [id number] Care Teams Dispatch Supervisor Relationship Specialty Start Date End Date [facility], [address] [id number] PCP - General 12/10/15 Kim Diaz MD [address] [address] Hospitalist Endocrinology, Diabetes, and Metabolism 03/14/24
[2025-05-05 07:47] VITALS: BP 89/68; PULSE 71; RESP 16; TEMP 36.8; O2SAT 99; BMI 31.9
--- NOTE | 2025-05-05 08:48 | ED.BACK ---
HPI - Back Pain/Injury General Date Seen: 05/05/25 Chief Complaint: Back Injury/Pain Stated Complaint: Lower back pain Time Seen by Provider: 05/05/25 08:01 Source: patient Mode of arrival: ambulatory Limitations: no limitations History of Present Illness HPI Narrative: Patient is a 29-year-old female presenting to the emergency department for low back pain. She states she has been dealing with low back pain for several years since injury. States she will get flare-up of her back pain every now and then and she states she knows that usually the day after she works out. Does not happen every time after she works out. States this flare up started about a week ago and has not been getting any better. She has been taking [id number] pain medication without any improvement in her symptoms. Denies fevers, chills, weakness, numbness, saddle anesthesia, urinary retention, urinary or bowel incontinence. She has been able to ambulate without issues. States this is the 1st flare up she has had in a few months. Does think this once feels worse than her previous flare ups. No history of IV drug use. Does have a previous lumbar spine MRI from 08/18/2023 showing minor discogenic degeneration changes the L4-L5 resulting no significant central canal or foraminal narrowing. She states the pain seems to radiate down the backs of both legs. Related Data Home Medications ?Medication ?Instructions ?Recorded ?Confirmed cyclobenzaprine 5 mg tablet mg PO 05/05/25 escitalopram oxalate 10 mg tablet 10 mg PO DAILY 05/05/25 05/05/25 methylprednisolone 4 mg tablets in 0 mg PO DIRECTED 05/05/25 05/05/25 a dose pack Previous Rx's ?Medication ?Instructions ?Recorded ketorolac 10 mg tablet 10 mg PO Q6H PRN pain #20 tabs 05/05/25 oxycodone 5 mg tablet 5 mg PO Q6H PRN pain #12 tabs 05/05/25 prednisone 20 mg tablet 40 mg (2 x 20 mg) PO DAILY #10 tabs 05/05/25 Allergies Allergy/AdvReac Type Severity Reaction Status Date / Time No Known Drug Allergies Allergy Verified 02/13/25 14:46 Review of Systems Narrative: Pertinent systems reviewed and were negative unless stated in HPI PFSH PFSH Medical History Chest pain ?R07.9 - Chest pain, unspecified (ICD-10) Acute pelvic inflammatory disease ?N73.0 - Acute parametritis and pelvic cellulitis (ICD-10) Miscarriage ?O03.9 - Complete or unspecified spontaneous without complication (ICD-10) No significant past medical history Surgical History H/O plastic surgery ?Z98.890 - Other specified postprocedural states (ICD-10) Social History What is your current living situation?: I presently have a place to live Problems where you live: no known problems In the past 12 months, utilities in danger of being shut off: no In past 12 months, lack of transportation kept you from medical appts, meetings, work, or getting things needed for daily living: no In the past 12 mos, have been you worried that your food would run out before you had money to buy more?: never true In the past 12 mos, the food you bought just didn't last and you didn't have money to buy more?: never true Smoking Status: Never smoker Do you use any of these nicotine containing products: None Second hand tobacco smoke exposure: No How often do you have a drink containing alcohol: 2-4 times a month AUDIT-C Alcohol total score: 2 Non-prescribed substance use: denies use How often does anyone, including family, friends and others, physically hurt you: never How often does anyone, including family, friends and others, insult or talk down to you: never How often does anyone, including family, friends and others, threaten you with harm: never How often does anyone, including family, friends and others, scream or curse at you: never service: No Exam Narrative: Exam Narrative: Const: Well-nourished, Well-developed, in mild distress Eyes: PERRL, no conjunctival injection, and symmetrical lids HENT: Atraumatic external nose and ears. Moist mucous membranes. Neck: Symmetric, trachea midline, No thyromegaly. MSK:Extremities w/o deformity, Normal Active ROM, midline low back tenderness around L2 through L4, paraspinal tenderness in the same region bilaterally Skin: Warm, Dry. No rashes or lesions. Neuro: Normal Muscle tone, No focal neurological deficits. Psych: Awake, Alert, & Oriented x3. Appropriate mood and affect. Const: Vital Signs, click to edit/add: Vital Signs - 24 hr 05/05/25 07:47 Temperature 98.2 F Pulse Rate [Pulse Oximeter] 71 Respiratory Rate 16 Blood Pressure [Ri ght Upper Arm] 89/68 L Pulse Oximetry 99 Oxygen Delivery Me thod Room Air Course Vital Signs Vital signs: Initial Vital Signs Temperature 98.2 F 05/05/25 07:47 Temperature Source Temporal Artery Scan 05/05/25 07:47 Pulse Rate 71 05/05/25 07:47 Respiratory Rate 16 05/05/25 07:47 Blood Pressure 89/68 L 05/05/25 07:47 Blood Pressure Mean 75 05/05/25 07:47 Blood Pressure Position Sitting 05/05/25 07:47 Pulse Oximetry 99 05/05/25 07:47 Oxygen Delivery Method Room Air 05/05/25 07:47 Vital Signs Temperature 98.2 F 05/05/25 07:47 Pulse Rate 71 05/05/25 07:47 Respiratory Rate 16 05/05/25 07:47 Blood Pressure 89/68 L 05/05/25 07:47 Pulse Oximetry 99 05/05/25 07:47 Oxygen Delivery Method Room Air 05/05/25 07:47 Temperature 98.2 F 05/05/25 07:47 Pulse Rate 71 05/05/25 07:47 Respiratory Rate 16 05/05/25 07:47 Blood Pressure 89/68 L 05/05/25 07:47 Pulse Oximetry 99 05/05/25 07:47 Oxygen Delivery Method Room Air 05/05/25 07:47 MDM - Back Pain/Injury MDM Narrative Medical decision making narrative: Patient is a 29-year-old female presenting for low back pain. She has no red flag symptoms for cauda equina. With no history of IV drug use, fevers, or other systemic symptoms I have low concern for diskitis or an epidural abscess. Is she has had multiple flares in the past I do not believe repeat MRI is necessary at this time. X-rays are not indicated in nontraumatic back pain. I will prescribe her some oxycodone, Toradol, steroids to help with the back pain. I informed her to follow up with her PCP and the [facility] Discharge Plan Discharge Clinical Impression: Lumbar radiculopathy Patient Disposition: Home, Self-Care Condition: Stable Instructions: Acute Low Back Pain (ED) Additional Instructions: Take to Toradol as needed for pain. When using the Toradol do not take other NSAIDs, for example naproxen or ibuprofen. You can use Tylenol though as it is a different class of drugs. If that is not helping you can also use the oxycodone. Take the prednisone daily. I recommend following up with the primary care provider. Also recommend trying to get an appointment with the [facility]. You can call them at [phone] Prescriptions: New prednisone 20 mg tablet 40 mg PO DAILY Qty: 10 0RF ketorolac 10 mg tablet 10 mg PO Q6H PRN (Reason: pain) Qty: 20 0RF Rx Instructions: maximum total duration of 5 days from all oral, intranasal, or parenteral formulations oxycodone 5 mg tablet 5 mg PO Q6H PRN (Reason: pain) Qty: 12 0RF No Action methylprednisolone 4 mg tablets,dose pack 0 mg PO DIRECTED escitalopram oxalate 10 mg tablet 10 mg PO DAILY cyclobenzaprine 5 mg tablet PO Follow Up/Referrals: Celso Ibanez MD [Primary Care Provider, Family Practice] Stand Alone Forms: [employer] Info Instructions
[2025-05-05 08:58] VITALS: BP 99/63; PULSE 58; RESP 16; O2SAT 99
== END 2025-05-05 09:04 | disposition home or self-care (01) ==
PROVIDERS: Emergency Provider Student in an Organized Health Care Education/Training Program; PCP Family Medicine
DX: M54.16 Radiculopathy, lumbar region (principal)
CPT/HCPCS: 99282; 99283

== ENCOUNTER 2025-06-13 12:30 | Outpatient (CLI) | payer OTHER, SELFPAY ==
--- NOTE | 2025-06-13 13:00 | CRLHL7_ITS ---
For Patients: As a result of the Century Cures Act, medical imaging exams and procedure reports are released immediately into your electronic medical record. You may view this report before your referring provider. If you have questions, please contact your health care provider. INDICATION: Lumbar radiculopathy. TECHNIQUE: Multisequence multiplanar MRI of the lumbar spine without the use of intravenous contrast. COMPARISON: MR lumbar spine dated 08/18/2023. FINDINGS: Normal vertebral alignment, stature, and intrinsic marrow signal intensity. The conus medullaris terminates normally at the L1-L2 level. The prevertebral soft tissues are unremarkable. T12-L1 through L3-L4: No significant spinal canal or neural foraminal stenosis. L4-L5: Slight worsening of mild disc desiccation and height loss. Similar small broad central disc protrusion measuring approximately 3 mm in AP dimension. Similar mild narrowing of the right lateral recess. No high-grade spinal canal stenosis or significant neural foraminal narrowing. L5-S1: New small broad left paracentral disc protrusion measuring approximately 2.5 mm (series 4, image 10). No significant spinal canal or neural foraminal stenosis. IMPRESSION: 1. At L4-L5, similar small broad central disc protrusion mildly narrowing the right lateral recess. 2. At L5-S1, new small broad left paracentral disc protrusion (series 4, image 10). Dictated by Nemesio Cespedes MD @ 06/14/2025 8:08:50 PM (Electronically Signed)
== END 2025-06-13 12:31 | disposition home or self-care (01) ==
LOC: MRI 12:31
PROVIDERS: PCP Family Medicine; Visit Provider Family Medicine
DX: M54.16 Radiculopathy, lumbar region (principal); M51.26 Other intervertebral disc displacement, lumbar region; M51.27 Other intervertebral disc displacement, lumbosacral region
CPT/HCPCS: 72148